=== PATIENT | male | born 1960 | race Hispanic/Latino ===

== ENCOUNTER 2020-11-25 22:02 | Inpatient (IN) | payer SELFPAY ==
[2020-11-25 22:29] LABS: Arterial Blood Carboxyhemoglob 8.7 % (0-1.5); Blood Gas Oxyhemoglobin 90.1 % (94-97); Blood O2 Saturation 99.7 % (92-98.5)
[2020-11-25] MEDS ORDERED: METHYLPREDNISOLONE 125 MG INJ ONE (22:41)
[2020-11-25 23:10] LABS: Absolute Lymphocytes (CBC) 1.4 K/uL (0.7-4.9); Basophils % 0.3 % (0-1.3); Hematocrit 53.6 % (39.6-49.0); Lymphocytes % 11.4 % (15.3-44.8); MPV 7.3 fL (7.6-11.3); RBC Red Blood Cell Count 5.91 M/uL (4.33-5.43)
[2020-11-25 23:13] LABS: Protime INR 1.03
[2020-11-25 23:27] LABS: ALT/SGPT 27 U/L (12-78); Albumin 4.2 g/dL (3.4-5.0); Alkaline Phosphatase 111 U/L (45-117); BUN Blood Urea Nitrogen 13 mg/dL (7-18); Bicarbonate 32 mmol/L (21-32); Bilirubin Direct 0.1 mg/dL (0-0.2); Bilirubin Total 0.4 mg/dL (0.2-1.0); Glucose Level 122 mg/dL (74-106); NT PRO-BNP 71 pg/mL (<125); Protein, Total 7.7 g/dL (6.4-8.2); Sodium Level 138 mmol/L (136-145); Troponin (Emerg Dept Use Only) < 0.02 ng/mL (0.0-0.045)
[2020-11-25 23:29] LABS: AST/SGOT 20 U/L (15-37); C-Reactive Protein < 2.90 mg/L (<3.00); Magnesium 2.3 mg/dL (1.8-2.4); Potassium 4.6 mmol/L (3.5-5.1)
--- NOTE | 2020-11-25 23:29 | P.HP ---
Certification for Inpatient Patient admitted to: Inpatient With expected LOS: >2 Midnights Patient will require the following post-hospital care: None Practitioner: I am a practitioner with admitting privileges, knowledge of patient current condition, hospital course, and medical plan of care. Services: Services provided to patient in accordance with Admission requirements found in Title 42 Section 412.3 of the Code of Federal Regulations Patient History Date of Service: 11/25/20 Reason for admission: COPD exacerbation History of Present Illness: 60-year-old male with history of COPD, hypertension presents emergency room for shortness of breath. Patient reports increasing shortness of breath over the course of last few days cannula EMS tripoding, was 88% on room air. Patient was evaluated in the emerge department labs were significant for white blood cell count 12 hemoglobin 18 hematocrit 53.6 ABG pH 7.27 PCO2 69.7 patient was placed on BiPAP given nebulizer treatments, Solu-Medrol and magnesium, patient still very tight with expiratory wheezing on exam, ED very wishes to admit for further evaluation and management of COPD with exacerbation. Allergies No Known Allergies Allergy (Verified 12/19/16 06:07) Home Medications: Albuterol Inhaler [Ventolin Inhaler*] 2 puff IH Q6H PRN #1 hfa.aer.ad 12/19/16 Theophylline Anhydrous [Theophylline] 400 mg PO DAILY #30 tab.er.24h 12/19/16 Tiotropium [place] [Spiriva] 1 spray IH DAILY #30 cap.w.dev 12/19/16 - Past Medical/Surgical History Diabetic: No -: Hypertension -: COPD -: None Psychosocial/ Personal History: Lives at home, alone - Family History Father -: Heart disease Mother -: Lung disease - Social History Smoking Status: Current every day smoker Alcohol use: Yes CD- Drugs: No Caffeine use: Yes Place of Residence: Home Review of Systems 10-point ROS is otherwise unremarkable Respiratory: Cough, Shortness of Breath, SOB with Excertion, Wheezing Physical Examination - Physical Exam General: Alert, In no apparent distress, Oriented x3 HEENT: Atraumatic, PERRLA, Mucous membr. moist/pink, EOMI, Sclerae nonicteric Neck: Supple, 2+ carotid pulse no bruit, No LAD, Without JVD or thyroid abnormality Respiratory: Expiratory wheezes, Other (Mild respiratory distress) Cardiovascular: Regular rate/rhythm, Normal S1 S2 Gastrointestinal: Normal bowel sounds, No tenderness Musculoskeletal: No tenderness Integumentary: No rashes Neurological: Normal speech, Normal strength at 5/5 x4 extr, Normal tone, Normal affect - Studies Laboratory Data (last 24 hrs) 11/25/20 22:47: PT 11.9, INR 1.03 11/25/20 22:47: WBC 12.00 H, Hgb 18.1 H, Hct 53.6 H, Plt Count 286 Assessment and Plan - Plan Assessment: Acute hypoxic/hypercapnic respiratory failure secondary to COPD with exacerbation Hypertension Plan: Acute hypoxic/hypercapnic respiratory failure secondary to COPD with ex acerbation: Continue with IV steroids, inhaled ICS, scheduled nebulizer treatments, BiPAP repeat ABG in the morning supplemental oxygen as needed incentive spirometry, consult pulmonology. Anticipate clinical bruit over the course next 24 to 48 hours. Hypertension: Patient denies taking any medications at home will monitor blood pressure and provide as necessary. DVT PPX: Lovenox Code status: Full Discharge Plan: Home Plan to discharge in: 48 Hours - Advance Directives Does patient have a Living Will: No Does patient have a Durable POA for Healthcare: No - Code Status/Comfort Care Code Status Assessed: Yes (Full code) Critical Care: No Time Spent Managing Pts Care (In Minutes): 55
[2020-11-25] MEDS ORDERED: ALBUTEROL 2.5 MG/3 ML NEB SOL ONE (23:31)
[2020-11-25] MEDS ORDERED: IPRATROPIUM BROM 0.5MG/2.5ML ONE (23:31)
--- NOTE | 2020-11-25 23:42 | ER ---
Nurse's Notes [facility] Name: Cipriano Nesbitt Age: 60 yrs Sex: Male : 1960 Arrival Date: 11/25/2020 Time: 22:04 Bed 26 Private MD: Diagnosis: Acute respiratory failure. COPD exacerbation Presentation: 11/25 22:05 Chief complaint: EMS states: they were toned out for report of pt with difficulty bb breathing on arrival his sats were 88% on room air and he was in a tripod position. Coronavirus screen: difficulty breathing, Client presents with at least one sign or symptom that may indicate coronavirus-19. Standard/surgical mask placed on the client. Ebola Screen: No symptoms or risks identified at this time. Initial Sepsis Screen: Does the patient meet any 2 criteria? RR > 20 per min. HR > 90 bpm. Yes Does the patient have a suspected source of infection? Yes: Productive cough/pneumonia. Risk Assessment: Do you want to hurt yourself or someone else? Patient reports no desire to harm self or others. Onset of symptoms was November 25, 2020. Care prior to arrival: Medication(s) given: solu-medrol 125 mg IV initiated. 20 GA, in the left antecubital area, Oxygen administered. via nasal cannula. 22:05 Method Of Arrival: EMS: [facility] bb 22:05 Acuity: MARÍA 2 bb Historical: - Allergies: 22:10 No Known Allergies; bb - PMHx: 22:10 Asthma; Hypertension; bb - Immunization history:: Adult Immunizations unknown, Client reports having NOT received the Covid vaccine. . - Social history:: Smoking status: Patient reports the use of cigarette tobacco products, smokes one pack cigarettes per day. - Code Status:: Full code. Screenin:24 Abuse screen: Denies threats or abuse. Nutritional screening: No deficits noted. cw2 Tuberculosis screening: No symptoms or risk factors identified. Fall Risk No fall in past 12 months (0 pts). Sepsis Screening: SIRS - Systemic Inflammatory Response Syndrome: 2 or more indicates positive screen: [heart rate greater than 90 beats per minute] [respiratory rate is greater than 20 breaths per minute]. Assessment: 22:24 Reassessment: Patient appears in no apparent distress at this time. No changes from cw2 previously documented assessment. General: Appears distressed, Behavior is anxious, Smells of. Pain: Denies pain. Neuro: No deficits noted. Cardiovascular: No deficits noted. Respiratory: Patient placed on BiPAP: Inspiratory Pressure: 14 Expiratory (EPAP) Pressure: 6 FiO2%: 100 Respiratory Rate: 12. GI: No deficits noted. : No deficits noted. Vital Signs: 22:05 BP 188 / 89; Pulse 103; Resp 28 S; Temp 97.7(O); Pulse Ox 97% on 4 lpm NC; Weight 63.5 bb kg (R); Height 5 ft. 5 in. (165.10 cm) (R); 22:35 BP 153 / 84; Pulse 103; Resp 24; Pulse Ox 100% on 15% BiPAP; dc2 22:05 Body Mass Index 23.30 (63.50 kg, 165.10 cm) bb Vitals: 22:24 Cardiac Rhythm Assessment Regular Sinus tach. cw2 [place] Score: 22:24 Eye Response: spontaneous(4). Verbal Response: oriented(5). Motor Response: obeys cw2 commands(6). Total: 15. ED Course: 22:04 Patient arrived in ED. mw2 22:07 Derick Gupta MD is Attending Physician. pkl 22:07 Alton Beckman RN is Primary Nurse. cw2 22:10 Triage completed. bb 22:10 Arm band placed on Patient placed in an exam room, on a stretcher, on oxygen, on bb telemetry monitor, on pulse oximetry. 22:20 Basic Metabolic Panel Sent. dc2 22:20 Procalcitonin Sent. dc2 22:20 Lactate Sent. dc2 22:20 ABG Sent. dc2 22:20 CRP Sent. dc2 22:20 D-Dimer Sent. dc2 22:21 Basic Metabolic Panel Sent. dc2 22:21 CBC with Diff Sent. dc2 22:21 LFT's Sent. dc2 22:21 Magnesium Sent. dc2 22:21 NT PRO-BNP Sent. dc2 22:21 PT-INR Sent. dc2 22:21 Troponin (emerg Dept Use Only) Sent. dc2 22:22 Inserted saline lock: 20 gauge in right forearm, using aseptic technique. dc2 22:22 Accessed Clean \T\ dry. Dressing intact. Good blood return. Flushes easily. double lumen dc2 20 G to left AC. 22:29 No provider procedures requiring assistance completed. O2 via BIPAP 14/6 RT 12 FI02 cw2 100%. 22:32 Patient has correct armband on for positive identification. Bed in low position. Side cw2 rails up X2. 22:33 O2 via FIO2 DECREASED TO 40%. cw2 22:38 X-ray(s) taken. dc2 22:43 XRAY Chest (1 view) In Process Unspecified. EDMS 23:24 CPAP ([employer] Only) Sent. cw2 23:39 Abdirizak Narayanan DO is Hospitalizing Provider. pkl 11/26 01:36 Patient moved back from CT. df1 Administered Medications: 11/25 22:20 Drug: SOLU-Medrol (methylPrednisoLONE) 125 mg Route: IVP; Site: right antecubital; dc2 23:24 Drug: Albuterol - atroVENT (ipratropium) (3:1) (2.5 mg - 0.5 mg) 3 ml Route: Nebulizer; cw2 23:48 Drug: NS 0.9% 500 ml Route: IV; Rate: bolus; Site: left antecubital; cw2 23:48 Drug: NS 0.9% 1000 ml Route: IV; Rate: 100 ml/hr; Site: left antecubital; cw2 23:48 Drug: Magnesium Sulfate 2 grams Route: IVPB; Infused Over: 1 hrs; Site: left cw2 antecubital; Outcome: 23:41 Decision to Hospitalize by Provider. pkl 11/26 17:22 Patient left the ED. tc5 Signatures: Dispatcher [employer] EDMS Derick Gupta MD MD pkl Ruby Farias, MARY KATE RN bb Montrell Shaw 2 Amber Beebe df1 Piper Aguirre RN RN dc2 Alton Beckman RN RN cw2 Ml Caldera RN RN tc5 Corrections: (The following items were deleted from the chart) 11/25 22:40 22:21 CORONAVIRUS+ drawn and sent. dc2 EDMS 11/26 06:43 00:30 BP 106 / 45; Pulse 69bpm; Resp 26bpm; Pulse Ox 96%; Pain 0/10; dc2 dc2 06:43 01:15 BP 108 / 52; Pulse 72bpm; Resp 28bpm; Pulse Ox 95% 02 15% BiPAP; Pain 0/10; dc2 dc2 06:43 05:00 BP 153 / 89; Pulse 97bpm; Resp 21bpm; Pulse Ox 94% 02 15% BiPAP; Pain 0/10; dc2 dc2
--- NOTE | 2020-11-25 23:42 | EDPHYS ---
Physician Documentation [facility] Name: Cipriano Nesbitt Age: 60 yrs Sex: Male : 1960 Arrival Date: 11/25/2020 Time: 22:04 Bed 26 Private MD: ED Physician Derick Gupta HPI: 11/25 23:36 This 60 yrs old Male presents to ER via EMS with unknown complaint. pkl 23:36 The patient has shortness of breath at rest. Onset: The symptoms/episode began/occurred pkl today. The patient has experienced similar episodes in the past, a few times. Historical: - Allergies: 22:10 No Known Allergies; bb - PMHx: 22:10 Asthma; Hypertension; bb - Immunization history:: Adult Immunizations unknown, Client reports having NOT received the Covid vaccine. . - Social history:: Smoking status: Patient reports the use of cigarette tobacco products, smokes one pack cigarettes per day. - Code Status:: Full code. ROS: 23:36 Eyes: Negative for injury, pain, redness, and discharge, ENT: Negative for injury, pkl pain, and discharge, Neck: Negative for injury, pain, and swelling, Cardiovascular: Negative for chest pain, palpitations, and edema. 23:36 Respiratory: Positive for shortness of breath, at rest. wheezing. 23:36 Abdomen/GI: Negative for abdominal pain, nausea, vomiting, and diarrhea. 23:36 Back: Negative for acute changes. 23:36 : Negative for urinary symptoms. 23:36 MS/extremity: Negative for acute changes. 23:36 Skin: Negative for rash. 23:36 Neuro: Negative for altered mental status, loss of consciousness. Exam: 23:36 Head/Face: Normocephalic, atraumatic. Eyes: Pupils equal round and reactive to light, pkl extra-ocular motions intact. Lids and lashes normal. Conjunctiva and sclera are non-icteric and not injected. Cornea within normal limits. Periorbital areas with no swelling, redness, or edema. ENT: Nares patent. No nasal discharge, no septal abnormalities noted. Tympanic membranes are normal and external auditory canals are clear. Oropharynx with no redness, swelling, or masses, exudates, or evidence of obstruction, uvula midline. Mucous membranes moist. Neck: Trachea midline, no thyromegaly or masses palpated, and no cervical lymphadenopathy. Supple, full range of motion without nuchal rigidity, or vertebral point tenderness. No Meningismus. Chest/axilla: Normal chest wall appearance and motion. Nontender with no deformity. No lesions are appreciated. Cardiovascular: Regular rate and rhythm with a normal S1 and S2. No gallops, murmurs, or rubs. Normal PMI, no JVD. No pulse deficits. 23:36 Respiratory: moderate respiratory distress is noted, Respirations: labored breathing, Breath sounds: bronchial sounds, that are moderate, rhonchi, that are moderate, are scattered. 23:36 Abdomen/GI: Bowel sounds: normal, Palpation: abdomen is soft and non-tender, in all quadrants. 23:36 Back: Exam negative for acute changes. 23:36 : Exam negative for acute changes. 23:36 Musculoskeletal/extremity: Exam is negative for acute changes. 23:36 Skin: Exam negative for rash. 23:36 Neuro: Orientation: is normal, Mentation: is normal, Cranial nerves: grossly normal, Motor: Vital Signs: 22:05 BP 188 / 89; Pulse 103; Resp 28 S; Temp 97.7(O); Pulse Ox 97% on 4 lpm NC; Weight 63.5 bb kg (R); Height 5 ft. 5 in. (165.10 cm) (R); 22:35 BP 153 / 84; Pulse 103; Resp 24; Pulse Ox 100% on 15% BiPAP; dc2 22:05 Body Mass Index 23.30 (63.50 kg, 165.10 cm) bb [place] Com[place] Score: 22:24 Eye Response: spontaneous(4). Verbal Response: oriented(5). Motor Response: obeys cw2 commands(6). Total: 15. MDM: 22:07 Patient medically screened. pkl 23:36 Data reviewed: vital signs, nurses notes, lab test result(s), EKG, radiologic studies, pkl plain films. ED course: Talked to Antonino Fontanez ( [employer] ) Admit to Dr. Narayanan. 11/25 22:13 Order name: Basic Metabolic Panel pkl 11/25 22:13 Order name: CBC with Diff; Complete Time: 23:18 pkl 11/25 22:13 Order name: LFT's; Complete Time: 23:33 pkl 11/25 22:13 Order name: Magnesium; Complete Time: 23:33 pkl 11/25 22:13 Order name: NT PRO-BNP; Complete Time: 23:33 pkl 11/25 22:13 Order name: PT-INR; Complete Time: 23:18 pkl 11/25 22:13 Order name: Troponin (emerg Dept Use Only); Complete Time: 23:33 pkl 11/25 22:13 Order name: D-Dimer; Complete Time: 23:18 pkl 11/25 22:13 Order name: CRP; Complete Time: 23:33 pkl 11/25 22:13 Order name: ABG; Complete Time: 22:41 pkl 11/25 22:13 Order name: Lactate; Complete Time: 23:33 pkl 11/25 22:13 Order name: Procalcitonin pk 11/25 22:14 Order name: Basic Metabolic Panel; Complete Time: 23:33 EDMS 11/25 22:13 Order name: XRAY Chest (1 view) pk 11/25 22:47 Order name: CPAP ([employer] Only) EDCT 11/26 00:04 Order name: SARS-COV-2 RT PCR EDMS 11/26 00:06 Order name: Urine Dipstick-Ancillary EDMS 11/26 04:11 Order name: CBC with Automated Diff EDMS 11/26 06:01 Order name: ABG Arterial Blood Gas EDMS 11/26 07:24 Order name: Comprehensive Metabolic Panel EDMS 11/26 07:24 Order name: Lipid Profile EDMS 11/26 07:24 Order name: T4 Free EDMS 11/26 07:24 Order name: Magnesium EDMS 11/26 07:24 Order name: Thyroid Stimulating Hormone EDCT 11/26 08:07 Order name: Manual Differential EDMS 11/25 22:13 Order name: EKG; Complete Time: 22:15 pkl 11/25 22:13 Order name: Cardiac monitoring; Complete Time: 22:21 pk 11/25 22:13 Order name: EKG - Nurse/Tech; Complete Time: 22:21 pk 11/25 22:13 Order name: IV Saline Lock; Complete Time: 22:21 pk 11/25 22:13 Order name: Labs collected and sent; Complete Time: 22:21 pk 11/25 22:13 Order name: O2 Per Protocol; Complete Time: 22:21 pkl 11/25 22:13 Order name: O2 Sat Monitoring; Complete Time: 22:21 pkl Administered Medications: 22:20 Drug: SOLU-Medrol (methylPrednisoLONE) 125 mg Route: IVP; Site: right antecubital; dc2 23:24 Drug: Albuterol - atroVENT (ipratropium) (3:1) (2.5 mg - 0.5 mg) 3 ml Route: Nebulizer; cw2 23:48 Drug: NS 0.9% 500 ml Route: IV; Rate: bolus; Site: left antecubital; cw2 23:48 Drug: NS 0.9% 1000 ml Route: IV; Rate: 100 ml/hr; Site: left antecubital; cw2 23:48 Drug: Magnesium Sulfate 2 grams Route: IVPB; Infused Over: 1 hrs; Site: left cw2 antecubital; Disposition Summary: 11/25/20 23:41 Hospitalization Ordered Hospitalization Status: Inpatient Admission pkl Provider: Abdirizak Narayanan pkfarhad Condition: Stable pkl Problem: new pkl Symptoms: have improved pkl Bed/Room Type: Standard pkl Location: Telemetry/MedSurg (Inpatient)(11/26/20 15:20) wi Room Assignment: [facility](11/26/20 15:20) wi Diagnosis - Acute respiratory failure. COPD exacerbation pkl Forms: - Medication Reconciliation Form pkl - SBAR form pkl Signatures: Dispatcher [employer] EDCT Derick Gupta MD MD pkl Ruby Farias RN Antonino Marcum, GRAZING EXAMINER-C GRAZING EXAMINER-Cla1 Tess Morrison RN RN lesly1 Kortney Barreto wi Piper Aguirre RN RN dc2 Alton Beckman RN RN cw2 Corrections: (The following items were deleted from the chart) 22:40 22:15 CORONAVIRUS+[email or web address] ordered. [facility] EDCT 11/26 00:11 11/25 23:41 Telemetry/MedSurg (Inpatient) pkl tl1 11/26 00:11 11/25 23:41 pkl tl1 11/26 15:20 00:11 [facility] ER HOLD tl1 wi 15:20 00:11 ERHOLD- 1 mt
[2020-11-25] MEDS ORDERED: NA CHLORIDE 0.9% 500 ML ONE (23:51)
[2020-11-25] MEDS ORDERED: Magnesium Sulfate 2gm IVPB 2 G/50 ML BAG IV ONE (23:51)
[2020-11-25] MEDS ORDERED: NA CHLORIDE 0.9% 1,000 ML ONE (23:51)
[2020-11-25] MEDS ORDERED: ONDANSETRON 4 MG/2 ML VIAL IV PRN (23:53)
[2020-11-25] MEDS: NA CHLORIDE 0.9% 1,000 ML IV SCH (23:53)
[2020-11-26 00:06] LABS: Urine Blood Negative (Negative); Urine Glucose Trace (Negative); Urine Protein Negative (Negative); Urine Specific Gravity >=1.030 (1.005-1.030); Urine pH 5.5 (5.0-7.0)
[2020-11-26 00:27] VITALS: BMI 21.7
[2020-11-26] MEDS ORDERED: IPRATROPIUM BROM 0.5MG/2.5ML NEB SCH (02:00)
[2020-11-26] MEDS ORDERED: ALBUTEROL 2.5 MG/3 ML NEB SOL NEB SCH (02:00)
[2020-11-26] MEDS ORDERED: ALBUTEROL 2.5 MG/3 ML NEB SOL ONE (03:09)
[2020-11-26] MEDS ORDERED: IPRATROPIUM BROM 0.5MG/2.5ML ONE ×2 (03:09→15:15)
[2020-11-26 03:56] LABS: Absolute Lymphocytes (CBC) 0.4 K/uL (0.7-4.9); Basophils % 0.2 % (0-1.3); Hematocrit 48.8 % (39.6-49.0); Lymphocytes % 4.9 % (15.3-44.8); MPV 7.5 fL (7.6-11.3); RBC Red Blood Cell Count 5.32 M/uL (4.33-5.43)
[2020-11-26 06:00] LABS: Arterial Blood Carboxyhemoglob 4.9 % (0-1.5); Blood Gas Oxyhemoglobin 91.8 % (94-97); Blood O2 Saturation 97.6 % (92-98.5)
[2020-11-26] MEDS ORDERED: ALBUTEROL 2.5 MG/3 ML NEB SOL NEB PRN (06:26)
[2020-11-26] MEDS ORDERED: IPRATROPIUM BROM 0.5MG/2.5ML NEB PRN (06:26)
--- NOTE | 2020-11-26 06:28 | P.PN ---
Subjective Date of Service: 11/26/20 Chief Complaint: COPD exacerbation Subjective: Improving (Patient on BiPAP this morning but now down to nasal cannula) Physical Examination - Vital Signs Temperature: 98.3 F Blood Pressure: 109/65 Pulse: 72 Respirations: 15 Pulse Ox (%): 98 - Studies Laboratory Data (last 24 hrs) 11/25/20 22:47: PT 11.9, INR 1.03 11/25/20 22:47: WBC 12.00 H, Hgb 18.1 H, Hct 53.6 H, Plt Count 286 11/25/20 22:47: Sodium 138, Potassium 4.6, BUN 13, Creatinine 0.85, Glucose 122 H, Magnesium 2.3, Total Bilirubin 0.4, AST 20, ALT 27, Alkaline Phosphatase 111 Assessment & Plan Discharge Plan: Home Plan to discharge in: 48 Hours Physician Review Additional Text: COVID: negative CXR: COMPARISON: Chest Single View dated 12/19/2016 FINDINGS: Lines: None. Lungs: Large lung volumes and likely bullous emphysema Pleural: Blunting of the costophrenic angles may be secondary to hyperinflation. Cardiac: The heart size is within normal limits. Bones: No acute fractures. IMPRESSION: Bullous emphysema without superimposed acute process. Physical exam: General: Alert, In no apparent distress, Oriented x3 HEENT: Neck supple Respiratory: Clear. Unlabored. Currently on BiPAP. Cardiovascular: Regular rate/rhythm, Normal S1 S2 Gastrointestinal: Normal bowel sounds, No tenderness Musculoskeletal: No tenderness Integumentary: No rashes Neurological: Normal speech, Normal strength at 5/5 x4 extr, Normal tone, Normal affect Impression: Acute hypoxic/hypercapnic respiratory failure secondary to COPD with exacerbation Elevated blood pressure without hypertension Plan: Acute hypoxic/hypercapnic respiratory failure secondary to COPD with exacerbation: Patient on BiPAP this morning. Continue to wean off. Currently on 2 L per nasal cannula. Continue steroid, COPD treatment. Pulmonology consulted for further recommendation. Anticipate improvement over the next 24 to 48 hours. Patient will need follow-up with PCP and pulmonology. Patient may require home oxygen at discharge. Will reassess tomorrow. Elevated blood pressure without hypertension: Blood pressure stable at this time. No need for medication. Will monitor closely. DVT PPX: Lovenox Code status: Full Discharge Plan: Home Time Spent Managing Pts Care (In Minutes): 55
[2020-11-26] MEDS ORDERED: NA CHLORIDE 0.9% 1,000 ML ONE (06:44)
--- NOTE | 2020-11-26 07:12 | RAD REPORT ---
EXAM DESCRIPTION: RAD - Chest Single View - 11/25/2020 10:43 pm CLINICAL HISTORY: DYSPNEA COMPARISON: Chest Single View dated 12/19/2016 FINDINGS: Lines: None. Lungs: Large lung volumes and likely bullous emphysema Pleural: Blunting of the costophrenic angles may be secondary to hyperinflation. Cardiac: The heart size is within normal limits. Bones: No acute fractures. Other: IMPRESSION: Bullous emphysema without superimposed acute process.
[2020-11-26 07:19] LABS: ALT/SGPT 33 U/L (12-78); AST/SGOT 23 U/L (15-37); Albumin 3.3 g/dL (3.4-5.0); Alkaline Phosphatase 99 U/L (45-117); BUN Blood Urea Nitrogen 11 mg/dL (7-18); Bicarbonate 29 mmol/L (21-32); Bilirubin Total 0.3 mg/dL (0.2-1.0); Glucose Level 149 mg/dL (74-106); HDL Cholesterol 45 mg/dL (40-60); LDL Cholesterol, Calculated 117 (<130); Magnesium 2.4 mg/dL (1.8-2.4); Potassium 4.5 mmol/L (3.5-5.1); Protein, Total 6.5 g/dL (6.4-8.2); Sodium Level 138 mmol/L (136-145)
[2020-11-26] MEDS: ARFORMOTEROL TARTRATE 15 MCG/2 ML VIAL.NEB NEB SCH ×2 (07:40→19:45)
[2020-11-26] MEDS ORDERED: METHYLPREDNISOLONE 40 MG INJ ONE (07:51)
[2020-11-26] MEDS ORDERED: ENOXAPARIN 40 MG/0.4 ML SQ ONE (07:51)
[2020-11-26] MEDS ORDERED: ARFORMOTEROL TARTRATE 15 MCG/2 ML VIAL.NEB ONE (08:02)
[2020-11-26 08:06] LABS: Blood Morphology Comment NOT SEEN (NOT SEEN); Platelet Estimate ADEQ
[2020-11-26] MEDS: ENOXAPARIN 40 MG/0.4 ML SQ SCH (08:26)
[2020-11-26] MEDS ORDERED: DULERA 200/5 (MOMETASONE/FORMOTEROL) INHALER IH SCH (09:00)
[2020-11-26] MEDS ORDERED: METHYLPREDNISOLONE 40 MG INJ IV SCH (09:00)
[2020-11-26] MEDS: NA CHLORIDE 0.9% 1,000 ML IV SCH (09:53)
--- NOTE | 2020-11-26 13:40 | P.CNS ---
Date of Consult: 11/26/20 Reason for Consult: COPD exacerbation Chief Complaint: COPD exacerbation History of Present Illness: Age 60 hx of COPD AW worseing SOB, hyoxic OA and hypercapneic/ Doing better Allergies No Known Allergies Allergy (Verified 12/19/16 06:07) Home Medications: Albuterol Inhaler [Ventolin Inhaler*] 2 puff IH Q6H PRN #1 hfa.aer.ad 12/19/16 Theophylline Anhydrous [Theophylline] 400 mg PO DAILY #30 tab.er.24h 12/19/16 Tiotropium [place] [Spiriva] 1 spray IH DAILY #30 cap.w.dev 12/19/16 - Past Medical/Surgical History Diabetic: No -: Hypertension -: COPD -: None Psychosocial/ Personal History: Lives at home, alone - Family History Father Medical History: Heart disease Mother Medical History: Lung disease - Social History Smoking Status: Current every day smoker Alcohol use: No CD- Drugs: No Caffeine use: No Place of Residence: Home Review of Systems 10-point ROS is otherwise unremarkable General: Weakness Respiratory: Shortness of Breath Physical Examination Temp Pulse Resp BP Pulse Ox 98.2 F 94 H 16 112/68 97 11/26/20 08:00 11/26/20 12:00 11/26/20 12:00 11/26/20 12:00 11/26/20 08:00 General: Alert, In no apparent distress, Oriented x3 Neck: Supple Respiratory: Diminished Cardiovascular: No edema, Regular rate/rhythm Gastrointestinal: Normal bowel sounds, Soft and benign Musculoskeletal: No clubbing Laboratory Data (last 24 hrs) 11/25/20 22:47: PT 11.9, INR 1.03 11/25/20 22:47: WBC 12.00 H, Hgb 18.1 H, Hct 53.6 H, Plt Count 286 11/25/20 22:47: Sodium 138, Potassium 4.6, BUN 13, Creatinine 0.85, Glucose 122 H, Magnesium 2.3, Total Bilirubin 0.4, AST 20, ALT 27, Alkaline Phosphatase 111 - Problems (1) COPD exacerbation Current Visit: No Status: Resolved Plan: age 60 Aw COPD exacerbation, hypoxic hypercarbic/ XRY COPD changes labs unremarkable. Change to NC O2/ Need LABA
[2020-11-26] MEDS: IPRATROPIUM BROM 0.5MG/2.5ML NEB SCH ×2 (14:49→19:45)
[2020-11-26] MEDS: predniSONE 20 MG TAB PO SCH (19:47)
[2020-11-27] MEDS: IPRATROPIUM BROM 0.5MG/2.5ML NEB SCH ×2 (01:20→08:20)
[2020-11-27 05:31] LABS: Absolute Lymphocytes (CBC) 0.8 K/uL (0.7-4.9); Basophils % 0.1 % (0-1.3); Hematocrit 43.9 % (39.6-49.0); Lymphocytes % 5.1 % (15.3-44.8); MPV 7.4 fL (7.6-11.3); RBC Red Blood Cell Count 4.76 M/uL (4.33-5.43)
[2020-11-27 05:45] LABS: ALT/SGPT 29 U/L (12-78); AST/SGOT 11 U/L (15-37); Albumin 3.1 g/dL (3.4-5.0); Alkaline Phosphatase 89 U/L (45-117); BUN Blood Urea Nitrogen 15 mg/dL (7-18); Bicarbonate 33 mmol/L (21-32); Bilirubin Total 0.2 mg/dL (0.2-1.0); Glucose Level 118 mg/dL (74-106); Magnesium 2.3 mg/dL (1.8-2.4); Potassium 4.5 mmol/L (3.5-5.1); Protein, Total 5.9 g/dL (6.4-8.2); Sodium Level 141 mmol/L (136-145)
--- NOTE | 2020-11-27 06:10 | P.DS ---
Admission Date: 11/25/20 Discharge Date: 11/27/20 Primary Care Provider: none Disposition: ROUTINE DISCHARGE Discharge Condition: GOOD Reason for Admission: COPD exacerbation Consultations: Pulmonary-Dr. Albarran Procedures: COVID: negative CXR: COMPARISON: Chest Single View dated 12/19/2016 FINDINGS: Lines: None. Lungs: Large lung volumes and likely bullous emphysema Pleural: Blunting of the costophrenic angles may be secondary to hyperinflation. Cardiac: The heart size is within normal limits. Bones: No acute fractures. IMPRESSION: Bullous emphysema without superimposed acute process. Medical Problem List: Acute hypoxic/hypercapnic respiratory failure secondary to COPD with exacerbation Elevated blood pressure without hypertension Brief History of Present Illness: 60-year-old male with history of COPD presented to the emergency room with shortness of breath. Patient found to have acute respiratory failure. Patient required BiPAP in the emergency room. Patient admitted for further treatment. Hospital Course: Patient presented with acute hypoxic/hypercapnic respiratory failure secondary to COPD exacerbation. Patient required BiPAP during the course of his stay. Patient seen and evaluated by pulmonology. His condition improved with IV steroids and COPD treatment. At discharge patient without significant shortness of breath. Patient has been weaned off oxygen. At discharge the patient will continue with prednisone 20 mg 1 pill twice daily for 7 days then 1 pill once daily for 7 days. The patient will continue with air duo 1 puff twice daily and ProAir 2 puffs 3 times a day as needed for shortness of breath for his COPD. Education on COPD will be provided. Recommend to follow-up with pulmonology within 1 to 2 weeks to follow-up his hospitalization and continue his care. Recommend to establish care with a PCP in the area. Patient with elevated blood pressure without hypertension. Blood pressure stable at discharge. No need for medication at this time. This can be followed as an outpatient. Vital Signs/Physical Exam: Temp Pulse Resp BP Pulse Ox 97.8 F 90 18 121/56 L 92 11/27/20 00:00 11/27/20 00:00 11/27/20 00:00 11/27/20 00:00 11/27/20 00:00 General: Alert, In no apparent distress, Oriented x3, Cooperative HEENT: Atraumatic Neck: Supple Respiratory: Clear to auscultation bilaterally, Normal air movement Cardiovascular: Normal pulses, Regular rate/rhythm Gastrointestinal: Normal bowel sounds, No tenderness, No masses, No rebound, No guarding Musculoskeletal: No erythema, No tenderness, No warmth Integumentary: No tenderness/swelling, No erythema Neurological: Normal speech, Normal strength at 5/5 x4 extr, Normal tone, Normal affect Laboratory Data at Discharge: WBC 15.70 K/uL (4.3-10.9) H D 11/27/20 04:33 Hgb 14.6 g/dL (13.6-17.9) 11/27/20 04:33 Hct 43.9 % (39.6-49.0) 11/27/20 04:33 Plt Count 242 K/uL (152-406) 11/27/20 04:33 PT 11.9 SECONDS (9.5-12.5) 11/25/20 22:47 INR 1.03 11/25/20 22:47 Sodium 141 mmol/L (136-145) 11/27/20 04:33 Potassium 4.5 mmol/L (3.5-5.1) 11/27/20 04:33 BUN 15 mg/dL (7-18) 11/27/20 04:33 Creatinine 0.81 mg/dL (0.55-1.3) 11/27/20 04:33 Glucose 118 mg/dL (74-106) H 11/27/20 04:33 Magnesium 2.3 mg/dL (1.8-2.4) 11/27/20 04:33 Total Bilirubin 0.2 mg/dL (0.2-1.0) 11/27/20 04:33 AST 11 U/L (15-37) L 11/27/20 04:33 ALT 29 U/L (12-78) 11/27/20 04:33 Alkaline Phosphatase 89 U/L (45-117) 11/27/20 04:33 Triglycerides 75 mg/dL (<150) 11/26/20 05:43 Cholesterol 177 mg/dL (<200) 11/26/20 05:43 HDL Cholesterol 45 mg/dL (40-60) 11/26/20 05:43 Cholesterol/HDL Ratio 3.93 11/26/20 05:43 Home Medications: Albuterol Sulfate [Proair Hfa] 2 puff IH TID PRN #1 hfa.[email or web address] 11/27/20 Fluticasone Propion/Salmeterol [Airduo Digihaler 113-14 Mcg] 1 each IH BID #1 aer.pw.bas 11/27/20 predniSONE [Prednisone*] 20 mg PO SEECOM #21 tab 11/27/20 New Medications: Fluticasone Propion/Salmeterol [Airduo Digihaler 113-14 Mcg] 1 each IH BID #1 aer.pw.bas predniSONE [Prednisone*] 20 mg PO SEECOM #21 tab Albuterol Sulfate [Proair Hfa] 2 puff IH TID PRN #1 hfa.[email or web address] PRN Reason: Shortness Of Breath Physician Discharge Instructions: Patient presented with acute hypoxic/hypercapnic respiratory failure secondary to COPD exacerbation. Patient required BiPAP during the course of his stay. Patient seen and evaluated by pulmonology. His condition improved with IV steroids and COPD treatment. At discharge patient without significant shortness of breath. Patient has been weaned off oxygen. At discharge the patient will continue with prednisone 20 mg 1 pill twice daily for 7 days then 1 pill once daily for 7 days. The patient will continue with air duo 1 puff twice daily and ProAir 2 puffs 3 times a day as needed for shortness of breath for his COPD. Education on COPD will be provided. Recommend to follow-up with pulmonology within 1 to 2 weeks to follow-up his hospitalization and continue his care. Recommend to establish care with a PCP in the area. Patient with elevated blood pressure without hypertension. Blood pressure stable at discharge. No need for medication at this time. This can be followed as an outpatient. Diet: AHA Activity: Ad juan Followup: Unknown,U [Primary Care Provider] - Time spent managing pt's care (in minutes): 55
[2020-11-27] MEDS: ENOXAPARIN 40 MG/0.4 ML SQ SCH (08:17)
[2020-11-27] MEDS: predniSONE 20 MG TAB PO SCH (08:18)
[2020-11-27] MEDS: ARFORMOTEROL TARTRATE 15 MCG/2 ML VIAL.NEB NEB SCH (08:20)
[2020-11-27 08:35] VITALS: BP 106/55; TEMP 98.1
[2020-11-27 08:55] VITALS: O2SAT 94
--- NOTE | 2020-11-27 10:45 | EKG ---
Test Date: 2020-11-25 Test Time: 22:22:25 Clinical Appeals Auditor: DOUGLAS MEASUREMENT RESULTS: Intervals: Rate: 102 TX: 126 QRSD: 82 QT: 334 QTc: 435 [place]: P: 85 TX: 126 QRS: 81 T: 77 INTERPRETIVE STATEMENTS: Sinus tachycardia Biatrial enlargement Abnormal ECG Compared to ECG 12/19/2016 02:01:33 Atrial abnormality now present Sinus rhythm no longer present Electronically Signed On 11-27-20 10:40:54 CDT by Dc Hall
== END 2020-11-27 14:05 | disposition home or self-care (01) | DRG 190 ==
LOC: ER 22:02 → ERHOLD 23:41 → 2ND 11-26 16:39
PROVIDERS: ADMIT Family Medicine; ATTEND Family Medicine
PROC: 5A09357 Assistance with Respiratory Ventilation, Less than 24 Consecutive Hours, Continuous Positive Airway Pressure (ICD-10-PCS; principal; 2020-11-25)
DX: J44.1 Chronic obstructive pulmonary disease with (acute) exacerbation (principal); J96.02 Acute respiratory failure with hypercapnia; J96.01 Acute respiratory failure with hypoxia; R03.0 Elevated blood-pressure reading, without diagnosis of hypertension; Z20.822 Contact with and (suspected) exposure to COVID-19
CPT/HCPCS: 36415; 71045; 80048; 80053; 80061; 80076; 81003; 82805; 83605; 83735; 83880; 84145; 84439; 84443; 84484; 85025; 85379; 85610; 86140; 93005; 94010; 94640; 94660; 99285; J1650; J2920; J2930; J3475; J7030; J7040; J7512; J7605; J7606; U0003

== ENCOUNTER 2021-08-02 08:23 | Inpatient (IN) | payer OTHER, SELFPAY ==
[2021-08-02 08:46] LABS: Arterial Blood Carboxyhemoglob 6.8 % (0-1.5); Blood Gas Oxyhemoglobin 90.3 % (94-97); Blood O2 Saturation 97.9 % (92-98.5)
[2021-08-02 08:49] LABS: Absolute Lymphocytes (CBC) 1.5 K/uL (0.7-4.9); Hematocrit 55.4 % (39.6-49.0); Lymphocytes % 12.3 % (15.3-44.8); MCV 93.9 fL (80-100); MPV 7.4 fL (7.6-11.3)
[2021-08-02] MEDS ORDERED: METHYLPREDNISOLONE 125 MG INJ ONE ×2 (08:50→17:04)
[2021-08-02] MEDS ORDERED: LEVALBUTEROL 1.25 MG/3 ML NEB ONE (08:51)
[2021-08-02] MEDS ORDERED: MAGNESIUM SULFATE 1 gm IVPB 1 GM/100 ML BAG IV ONE (08:51)
[2021-08-02] MEDS ORDERED: NA CHLORIDE 0.9% 1,000 ML ONE (08:51)
--- NOTE | 2021-08-02 08:54 | RAD REPORT ---
EXAM DESCRIPTION: RAD - Chest Single View - 08/02/2021 8:45 am CLINICAL HISTORY: DYSPNEA Chest pain. COMPARISON: Chest Single View dated 11/25/2020; Chest Single View dated 12/19/2016 FINDINGS: Portable technique limits examination quality. The lungs are emphysematous but grossly clear. The heart is normal in size. No displaced fractures. IMPRESSION: No acute intrathoracic process suspected. Prominent COPD.
[2021-08-02 09:02] LABS: Protime INR 1.13
[2021-08-02 09:09] LABS: Bilirubin Direct 0.3 mg/dL (0-0.2); Bilirubin Total 0.8 mg/dL (0.2-1.0); CKMB Creatine Kinase MB 4.3 ng/mL (1.0-3.6); Potassium 4.3 mmol/L (3.5-5.1); Protein, Total 7.5 g/dL (6.4-8.2)
--- NOTE | 2021-08-02 09:43 | ER ---
Nurse's Notes [facility] Name: Cipriano Nesbitt Age: 61 yrs Sex: Male : 1960 Arrival Date: 08/02/2021 Time: 08:26 Bed 18 Private MD: Diagnosis: COPD/ Chronic obstructive pulmonary disease with (acute) exacerbation;Acute respiratory failure with hypercapnia;Altered mental status, unspecified;Hypoxemia Presentation: 08/02 08:30 Chief complaint: EMS states: EMS called for shortness of breath. When they arrived he iw has in the tripod position with O2 sat of 74% and place on oxygen for ems transport. 09:05 Coronavirus screen: Client denies travel out of the [place] in the last 14 days. Ebola iw Screen: Patient denies travel to an Ebola-affected area in the 21 days before illness onset. Initial Sepsis Screen: Does the patient meet any 2 criteria? No. Patient's initial sepsis screen is negative. Does the patient have a suspected source of infection? No. Patient's initial sepsis screen is negative. Risk Assessment: Do you want to hurt yourself or someone else? Patient reports no desire to harm self or others. Onset of symptoms is unknown. 09:05 Method Of Arrival: EMS: [facility] iw 09:05 Acuity: MARÍA 2 iw Triage Assessment: 09:07 General: Appears distressed, slender, Behavior is cooperative. Pain: Denies pain. iw Neuro: Level of Consciousness is awake, alert, obeys commands, drowsy. Cardiovascular: Patient's skin is warm and dry. Pulses are palpable in right radial artery and left radial artery Rhythm is regular. Respiratory: Airway is patent Respiratory effort is labored, Breath sounds are coarse Breath sounds with wheezes. GI: No signs and/or symptoms were reported involving the gastrointestinal system. : No signs and/or symptoms were reported regarding the genitourinary system. Derm: Skin is intact. Historical: - Allergies: : No Known Allergies; iw - Home Meds: 09:07 Prednisone Oral [Active]; Naproxen Oral [Active]; iw - PMHx: 09:07 Asthma; Hypertension; Chronic obstructive lung disease; iw - Immunization history:: Adult Immunizations unknown. - Social history:: Smoking status: Patient reports the use of cigarette tobacco products, smokes one pack cigarettes per day. - Family history:: not pertinent. - Hospitalizations: : No recent hospitalization is reported. Screenin:10 Abuse screen: Denies threats or abuse. Denies injuries from another. Nutritional iw screening: No deficits noted. Tuberculosis screening: No symptoms or risk factors identified. Fall Risk None identified. Assessment: 09:09 Reassessment: Patient appears in no apparent distress at this time. No changes from iw previously documented assessment. Patient and/or family updated on plan of care and expected duration. Pain level reassessed. Patient is alert, oriented x 3, equal unlabored respirations, skin warm/dry/pink. see triage assessment. 09:30 Reassessment: resting in bed with bipap. once bipap placed respiratory status improved ww and patient fell asleep. Patient states symptoms have improved. 10:00 Reassessment: Patient appears in no apparent distress at this time. No changes from ww previously documented assessment. Patient and/or family updated on plan of care and expected duration. Pain level reassessed. 10:30 Reassessment: patient becoming restless with bipap mask and trying to remove mask. Dr. pako Lucero informed patient of the importance of wearing mask. 10:45 Reassessment: resting comfortably with bipap. Hospitalist at bedside. 11:32 Reassessment: Patient appears in no apparent distress at this time. No changes from previously documented assessment. resting in bed with Bipap, no apparent distress noted. Warm blanket provided. 12:17 Reassessment: Patient appears in no apparent distress at this time. Patient is alert, ld1 oriented x 3, equal unlabored respirations, skin warm/dry/pink. 16:00 Reassessment: Pt aggravated - trying to climb out of bed, taking BIPAP mask off of ld1 face, yelling. Notified admitting physician. SEE [facility] FOR ORDERS. 19:00 Reassessment: Patient and/or family updated on plan of care and expected duration. Pain ll3 level reassessed. Patient is alert, oriented x 3, equal unlabored respirations, skin warm/dry/pink. Pt is in bed sleeping, chest rising and falling, currently on 4 L NC, RR are even and unlabored, no S/S of distress. 20:30 Reassessment: No changes from previously documented assessment. Patient and/or family ll3 updated on plan of care and expected duration. Pain level reassessed. Patient is alert, oriented x 3, equal unlabored respirations, skin warm/dry/pink. 22:00 Reassessment: No changes from previously documented assessment. Patient and/or family ll3 updated on plan of care and expected duration. Pain level reassessed. Patient is alert, oriented x 3, equal unlabored respirations, skin warm/dry/pink. Vital Signs: 08:30 BP 93 / 61; Pulse 98; Resp 14; Temp 98.3(O); Pulse Ox 95% on 3 lpm NC; Weight 58.97 kg; iw Height 5 ft. 6 in. (167.64 cm); Pain 0/10; 09:12 BP 107 / 74; Pulse 79; Resp 14; Pulse Ox 100% on BiPAP; iw 09:30 BP 116 / 56; Pulse 76; Resp 13; Pulse Ox 100% on BiPAP; ww 10:00 BP 117 / 61; Pulse 68; Resp 20; Pulse Ox 100% on BiPAP; ww 10:30 BP 102 / 71; Pulse 104; Resp 21; Pulse Ox 95% on BiPAP; ww 11:01 BP 100 / 46; Pulse 84; Resp 20; Pulse Ox 100% on BiPAP; ww 12:17 BP 107 / 90; Pulse 82; Resp 20; Pulse Ox 100% on BiPAP; ld1 13:00 BP 139 / 106; Pulse 109; Resp 20; Pulse Ox 97% on BiPAP; ld1 14:00 BP 107 / 64; Pulse 79; Resp 20; Pulse Ox 96% on BiPAP; ld1 15:00 BP 116 / 64; Pulse 80; Resp 20; Pulse Ox 99% on BiPAP; ld1 16:00 BP 120 / 90; Pulse 95; Resp 18; Pulse Ox 97% on 4 lpm NC; ld1 19:00 BP 133 / 60; Pulse 95; Resp 19; Pulse Ox 98% on 4 lpm NC; ll3 20:00 BP 112 / 60; Pulse 76; Resp 18; Pulse Ox 99% on 4 lpm NC; ll3 21:00 BP 110 / 62; Pulse 78; Resp 17; Pulse Ox 99% on BiPAP; ll3 22:00 BP 103 / 64; Pulse 87; Resp 16; Pulse Ox 100% on BiPAP; ll3 08:30 Body Mass Index 20.98 (58.97 kg, 167.64 cm) ED Course: 08:26 Patient arrived in ED. rn 08:26 Evelio Lucero MD is Attending Physician. rn 08:30 Inserted saline lock: 20 gauge in left antecubital area, using aseptic technique. iw 08:33 EKG done, by ED staff, reviewed by Evelio Lucero MD. em1 08:46 XRAY CXR (1 view) In Process Unspecified. EDMS 09:00 Inserted saline lock: 18 gauge in right antecubital area, using aseptic technique. iw 09:03 Hayley Beckman, RN is Primary Nurse. iw 09:04 BIPAP Sent. iw 09:07 Triage completed. iw 09:07 Arm band placed on. iw 09:10 Patient has correct armband on for positive identification. Bed in low position. Call iw light in reach. Side rails up X2. Client placed on continuous cardiac and pulse oximetry monitoring. NIBP monitoring applied. 09:11 Oxygen administration administration via face mask 16/8 bipap with respirations of 20. iw 09:41 Truong Das MD is Hospitalizing Provider. rn 12:17 No provider procedures requiring assistance completed. ld1 19:25 Primary Nurse role handed off by Hayley Beckman, RN mw2 22:38 Patient admitted, IV remains in place. ll3 Administered Medications: 08:50 Drug: SOLU-Medrol (methylPrednisoLONE) 125 mg Route: IVP; Site: left antecubital; iw 08/03 09:10 Follow up: Response: No adverse reaction iw 08/02 08:53 Drug: Magnesium Sulfate 1 grams Route: IVPB; Infused Over: 1 hrs; Site: left iw antecubital; 11:37 Follow up: Response: No adverse reaction; IV Status: Completed infusion ww 08:53 Drug: NS 0.9% 1000 ml Route: IV; Rate: 1000 ml; Site: left antecubital; iw 11:36 Follow up: IV Status: Completed infusion ww 09:04 Drug: Xopenex (levalbuterol) (3) 1.25 mg Route: Inhalation; iw 11:37 Follow up: Response: No adverse reaction ww Medication: 12:17 VIS not applicable for this client. ld1 Outcome: 09:42 Decision to Hospitalize by Provider. rn 22:38 Admitted to Tele accompanied by nurse, via stretcher, room 403, with oxygen, with ll3 chart, Report called to MARY KATE Parker 22:38 Condition: stable 22:38 Instructed on the need for admit, Demonstrated understanding of instructions. 22:58 Patient left the ED. mw2 Signatures: Dispatcher [employer] EDHayley Daley, RN RN iw Evelio Lucero MD MD rn Martinez, Eric em1 Montrell Shaw mw2 Joana Silva RN RN ld1 Madyson Conley RN RN ll3 Yandy Meza RN RN ww Corrections: (The following items were deleted from the chart) : 09:05 Chief complaint: EMS states: EMS called for shortness of breath. When they iw arrived he has in the tripod position with O2 sat of 74% and place on oxygen for ems transport. iw 09: 09:05 BP 93 / 61; Pulse 98bpm; Resp 14bpm; Pulse Ox 95% 3 lpm Nasal Cannula; Temp 98.3F iw Oral; 58.97 kg; Height 5 ft. 6 in.; BMI: 20.9; Pain 0/10; iw
--- NOTE | 2021-08-02 09:43 | EDPHYS ---
Physician Documentation [facility] Name: Cipriano Nesbitt Age: 61 yrs Sex: Male : 1960 Arrival Date: 08/02/2021 Time: 08:26 Bed 18 Private MD: ED Physician Evelio Lucero HPI: 08/02 09:05 This 61 yrs old Male presents to ER via Unassigned with complaints of sob. rn 09:05 The patient has shortness of breath at rest. Onset: The symptoms/episode began/occurred rn today. Duration: The symptoms are continuous. The patient's shortness of breath is aggravated by exertion, light activity, talking, is alleviated by application of supplemental oxygen. Associated signs and symptoms: Pertinent positives: non-productive cough, Pertinent negatives: chest pain, fever, hemoptysis. Severity of symptoms: At their worst the symptoms were moderate in the emergency department the symptoms have improved. The patient has experienced similar episodes in the past. The patient has not recently seen a physician. EMS reports sob and confusion, patient reports began today, similar to previous episodes, better with supplemental oxygen. No fever. No trauma. . Historical: - Allergies: 09:07 No Known Allergies; iw - Home Meds: 09:07 Prednisone Oral [Active]; Naproxen Oral [Active]; iw - PMHx: 09:07 Asthma; Hypertension; Chronic obstructive lung disease; iw - Immunization history:: Adult Immunizations unknown. - Social history:: Smoking status: Patient reports the use of cigarette tobacco products, smokes one pack cigarettes per day. - Family history:: not pertinent. - Hospitalizations: : No recent hospitalization is reported. ROS: 09:05 Constitutional: Negative for fever, chills, and weight loss, Eyes: Negative for injury, rn pain, redness, and discharge, ENT: Negative for injury, pain, and discharge, Neck: Negative for injury, pain, and swelling, Cardiovascular: Negative for chest pain, palpitations, and edema, Respiratory: + cough and sob Abdomen/GI: Negative for abdominal pain, nausea, vomiting, diarrhea, and constipation, Back: Negative for injury and pain, : Negative for injury, bleeding, discharge, and swelling, MS/Extremity: Negative for injury and deformity, Skin: Negative for injury, rash, and discoloration, Neuro: + generalized weakness Exam: 09:05 Constitutional: Thin male, slow to respond, awakens to voice and tactile stimulation rn Head/Face: Normocephalic, atraumatic. Eyes: Periorbital areas with no swelling, redness, or edema. ENT: dry MM, no stridor Cardiovascular: Regular rate and rhythm. No pulse deficits. Respiratory: + shallow respirations, + tachypnea, + poor inspiratory air movement, faint wheezing noted bilaterally. + retractions. Abdomen/GI: soft, non-tender Skin: Warm, dry, no cyanosis MS/ Extremity: Pulses equal, no cyanosis. Neurovascular intact. Full, normal range of motion. Equal circumference. Neuro: Somnolent, GCS 15, oriented to person, not place or time. Vital Signs: 08:30 BP 93 / 61; Pulse 98; Resp 14; Temp 98.3(O); Pulse Ox 95% on 3 lpm NC; Weight 58.97 kg; iw Height 5 ft. 6 in. (167.64 cm); Pain 0/10; 09:12 BP 107 / 74; Pulse 79; Resp 14; Pulse Ox 100% on BiPAP; iw 09:30 BP 116 / 56; Pulse 76; Resp 13; Pulse Ox 100% on BiPAP; ww 10:00 BP 117 / 61; Pulse 68; Resp 20; Pulse Ox 100% on BiPAP; ww 10:30 BP 102 / 71; Pulse 104; Resp 21; Pulse Ox 95% on BiPAP; ww 11:01 BP 100 / 46; Pulse 84; Resp 20; Pulse Ox 100% on BiPAP; ww 12:17 BP 107 / 90; Pulse 82; Resp 20; Pulse Ox 100% on BiPAP; ld1 13:00 BP 139 / 106; Pulse 109; Resp 20; Pulse Ox 97% on BiPAP; ld1 14:00 BP 107 / 64; Pulse 79; Resp 20; Pulse Ox 96% on BiPAP; ld1 15:00 BP 116 / 64; Pulse 80; Resp 20; Pulse Ox 99% on BiPAP; ld1 16:00 BP 120 / 90; Pulse 95; Resp 18; Pulse Ox 97% on 4 lpm NC; ld1 19:00 BP 133 / 60; Pulse 95; Resp 19; Pulse Ox 98% on 4 lpm NC; ll3 20:00 BP 112 / 60; Pulse 76; Resp 18; Pulse Ox 99% on 4 lpm NC; ll3 21:00 BP 110 / 62; Pulse 78; Resp 17; Pulse Ox 99% on BiPAP; ll3 22:00 BP 103 / 64; Pulse 87; Resp 16; Pulse Ox 100% on BiPAP; ll3 08:30 Body Mass Index 20.98 (58.97 kg, 167.64 cm) iw MDM: 08:26 Patient medically screened. rn 09:41 Differential diagnosis: Chronic Obstructive Pulmonary Disease Myocardial Infarction rn pneumonia, Pneumothorax pulmonary edema, reactive airway disease. Data reviewed: vital signs, nurses notes, lab test result(s), EKG, radiologic studies, plain films, and as a result, I will admit patient. Counseling: I had a detailed discussion with the patient and/or guardian regarding: the historical points, exam findings, and any diagnostic results supporting the discharge/admit diagnosis, lab results, radiology results, the need for further work-up and treatment in the hospital. Response to treatment: the patient's symptoms have mildly improved after treatment, and as a result, I will admit patient. Admission orders: after a detailed discussion of the patient's condition and case, the admit orders are written by me. 08/02 08:27 Order name: BMP; Complete Time: 09:40 rn 08/02 08:27 Order name: Blood Culture Adult (2) rn 08/02 08:27 Order name: CBC with Diff; Complete Time: 09:40 rn 08/02 08:27 Order name: Ckmb; Complete Time: 09:40 rn 08/02 08:27 Order name: Hepatic Function; Complete Time: 09:40 rn 08/02 08:27 Order name: NT PRO-BNP; Complete Time: 09:40 rn 08/02 08:27 Order name: PT-INR; Complete Time: 09:40 rn 08/02 08:27 Order name: Ptt, Activated; Complete Time: 09:40 rn 08/02 08:27 Order name: XRAY CXR (1 view); Complete Time: 09:40 rn 08/02 08:27 Order name: ABG; Complete Time: 09:40 rn 08/02 08:27 Order name: BIPAP rn 08/02 10:40 Order name: Urinalysis EDIL 08/02 10:42 Order name: SARS-COV-2 RT PCR EDIL 08/02 08:27 Order name: EKG; Complete Time: 08:28 rn 08/02 08:27 Order name: Cardiac monitoring; Complete Time: 09:03 rn 08/02 08:27 Order name: EKG - Nurse/Tech; Complete Time: 08:33 rn 08/02 08:27 Order name: IV Saline Lock; Complete Time: 09:03 rn 08/02 08:27 Order name: Labs collected and sent; Complete Time: 09:03 rn 08/02 08:27 Order name: O2 Per Protocol; Complete Time: 09:04 rn 08/02 08:27 Order name: O2 Sat Monitoring; Complete Time: 09:04 rn 08/02 10:40 Order name: Regular EDMS Administered Medications: 08:50 Drug: SOLU-Medrol (methylPrednisoLONE) 125 mg Route: IVP; Site: left antecubital; iw 08/03 09:10 Follow up: Response: No adverse reaction iw 08/02 08:53 Drug: Magnesium Sulfate 1 grams Route: IVPB; Infused Over: 1 hrs; Site: left iw antecubital; 11:37 Follow up: Response: No adverse reaction; IV Status: Completed infusion ww 08:53 Drug: NS 0.9% 1000 ml Route: IV; Rate: 1000 ml; Site: left antecubital; iw 11:36 Follow up: IV Status: Completed infusion ww 09:04 Drug: Xopenex (levalbuterol) (3) 1.25 mg Route: Inhalation; iw 11:37 Follow up: Response: No adverse reaction ww Disposition: 09:41 Critical Care:. rn Disposition Summary: 08/02/21 09:42 Hospitalization Ordered Hospitalization Status: Inpatient Admission rn Provider: Truong Das rn [facility] ([facility]patient) rn Condition: Stable rn Problem: an acute exacerbation rn Symptoms: have improved rn Bed/Room Type: Standard rn Room Assignment: 403(08/02/21 20:43) bb Diagnosis - COPD/ Chronic obstructive pulmonary disease with (acute) exacerbation rn - Acute respiratory failure with hypercapnia rn - Altered mental status, unspecified rn - Hypoxemia rn Forms: - Medication Reconciliation Form rn - SBAR form double corner cutter time excluding procedures: 09:41 Critical care time: Bedside Care: 35 minutes. Total time: 35 minutes rn Signatures: Dispatcher [employer] EDMS Farias, MARY KATE Beltran RN, Irene, RN RN iw Nieto, Roman, MD MD rn Wood, Whitney RN ww Corrections: (The following items were deleted from the chart) 10:42 10:06 COVID 19 CPL+BRZ ordered. EDMS EDMS 20:43 09:42 mary kate palacios
[2021-08-02] MEDS ORDERED: ALBUTEROL 2.5 MG/3 ML NEB SOL NEB PRN ×2 (10:31→14:00)
--- NOTE | 2021-08-02 10:40 | P.HP ---
Certification for Inpatient Patient admitted to: Observation With expected LOS: <2 Midnights Patient will require the following post-hospital care: None Practitioner: I am a practitioner with admitting privileges, knowledge of patient current condition, hospital course, and medical plan of care. Services: Services provided to patient in accordance with Admission requirements found in Title 42 Section 412.3 of the Code of Federal Regulations Patient History Date of Service: 08/02/21 Reason for admission: COPD exacerbation, hypercapnic respiratory failure History of Present Illness: 62-year-old male patient with medical history significant for COPD, hypertension was evaluated for episode of inability to breathe well and altered mentation. He was said to have issues at home and emergency medical personnel was called and on arrival his oxygen saturation was in the 70s. He was transferred to the hospital for evaluation. In the hospital he had urgent chest x-ray done that revealed no acute process however there were changes compatible with emphysema. ABG done revealed a pH of 7.27 with PCO2 of 79 and he was deemed to be in acute hypercapnic respiratory failure. He was started on oxygen by nasal cannula with slight improvement in oxygenation however after ABG results was populated he was put on BiPAP for hypercapnic respiratory failure. There was no overt evidence of pneumonia changes on chest x-ray. He denied any episodes of cough productive of sputum, fever, chills, rigor, nausea, vomiting. He denies night sweats. He was admitted on observation because of his respiratory failure related issue. Allergies No Known Allergies Allergy (Verified 12/19/16 06:07) Home Medications: Albuterol Sulfate [Proair Hfa] 2 puff IH TID PRN #1 hfa.aer.ad 11/27/20 Fluticasone Propion/Salmeterol [Airduo Digihaler 113-14 Mcg] 1 each IH BID #1 aer.pw.bas 11/27/20 predniSONE [Prednisone*] 20 mg PO SEECOM #21 tab 11/27/20 - Past Medical/Surgical History Diabetic: No -: Hypertension -: COPD Past Surgical History: Patient denies surgical history -: None Psychosocial/ Personal History: Lives at home, alone - Family History Father -: Heart disease Mother -: Lung disease - Social History Alcohol use: No CD- Drugs: No Caffeine use: No Review of Systems General: Weakness, Malaise Eyes: Unremarkable ENT: Unremarkable Respiratory: Shortness of Breath Cardiovascular: Unremarkable Gastrointestinal: Unremarkable Genitourinary: Unremarkable Musculoskeletal: Unremarkable Integumentary: Unremarkable Physical Examination - Physical Exam General: Alert HEENT: Atraumatic, Normocephalic Neck: Supple Respiratory: Diminished Cardiovascular: Regular rate/rhythm, Normal S1 S2 Gastrointestinal: Soft and benign Musculoskeletal: No swelling Neurological: Normal speech, Sensation intact - Studies Laboratory Data (last 24 hrs) 08/02/21 08:38: PT 12.5, INR 1.13, APTT 36.9 08/02/21 08:38: WBC 12.2 H, Hgb 18.2 H, Hct 55.4 H, Plt Count 296 08/02/21 08:38: Sodium 139, Potassium 4.3, BUN 18, Creatinine 1.09, Glucose 147 H, Total Bilirubin 0.8, AST 19, ALT 36, Alkaline Phosphatase 96 Assessment and Plan - Plan COPD with exacerbation. He does have symptom compatible with COPD exacerbation. He has been started on steroid therapy and oxygenation with BiPAP. Will consider antibiotic therapy if symptoms of tachycardia, fever and sputum production ensues. For now he will be deemed as a noninfectious COPD exacerbation patient. We have consulted pulmonary physician for adjustment of medication for COPD management. Hypercapnic respiratory failure: Present on admission. Deemed secondary to COPD exacerbation. He has been started on BiPAP therapy. We will monitor ABG as PCO2 was elevated at 79 Will continue inhalational therapy for COPD management. History of hypertension: We will monitor vital signs per unit protocol and continue antihypertensive medications. Prophylaxis: Lovenox for DVT prophylaxis. CODE STATUS: Full code. Disposition: For possible discharge in 24 to 48 hours. - Advance Directives Does patient have a Living Will: No Does patient have a Durable POA for Healthcare: No
[2021-08-02] MEDS: IPRATROPIUM BROM 0.5MG/2.5ML NEB SCH ×2 (13:12→19:41)
[2021-08-02] MEDS ORDERED: IPRATROPIUM BROM 0.5MG/2.5ML ONE ×2 (13:17→19:38)
[2021-08-02] MEDS: LORAZEPAM 0.5 MG TABLET PO ONE ×2 (15:45→15:46)
[2021-08-02] MEDS ORDERED: LORAZEPAM 0.5 MG TABLET ONE (15:53)
[2021-08-02] MEDS: METHYLPREDNISOLONE 40 MG INJ IV SCH (17:00)
[2021-08-02] MEDS ORDERED: NA CHLORIDE 0.9% 500 ML IV ONE (23:12)
[2021-08-02] MEDS ORDERED: NA CHLORIDE 0.9% 500 ML ONE (23:20)
[2021-08-03] MEDS ORDERED: NA CHLORIDE 0.9% 500 ML IV ONE (00:01)
[2021-08-03] MEDS: IPRATROPIUM BROM 0.5MG/2.5ML NEB SCH ×4 (01:00→19:50)
[2021-08-03 01:42] VITALS: BMI 20.6
[2021-08-03] MEDS: ENOXAPARIN 40 MG/0.4 ML SQ SCH (08:11)
[2021-08-03] MEDS: METHYLPREDNISOLONE 40 MG INJ IV SCH ×3 (08:11→17:00)
--- NOTE | 2021-08-03 08:41 | P.CNS ---
Date of Consult: 08/03/21 Reason for Consult: Respiratory failure Chief Complaint: COPD exacerbation, hypercapnic respiratory failure History of Present Illness: Patient is 62 years of age with a history of COPD lives by himself and used to smoke admitted with altered mental status daughter at the bedside patient does not speak any Ukrainian she was found to be hypoxic currently on BiPAP also hypercapnic not use any bronchodilators or oxygen is still confused although alert positive and minimally cooperative Allergies No Known Allergies Allergy (Verified 12/19/16 06:07) Home Medications: NK [No Home Meds] 08/03/21 - Past Medical/Surgical History Diabetic: No -: Hypertension -: COPD -: Smoker -: None Psychosocial/ Personal History: Lives at home, alone - Family History Father Medical History: Heart disease Mother Medical History: Lung disease - Social History Smoking Status: Current every day smoker Alcohol use: Yes CD- Drugs: No Caffeine use: Yes Place of Residence: Home Review of Systems is unable to be obtained Physical Examination Temp Pulse Resp BP Pulse Ox 97.4 F 86 18 109/49 L 94 08/03/21 03:42 08/03/21 03:42 08/03/21 03:42 08/03/21 03:42 08/03/21 03:42 General: Alert, Cooperative Respiratory: Clear to auscultation bilaterally, Diminished Cardiovascular: No edema, Regular rate/rhythm, Normal S1 S2 Gastrointestinal: Hypoactive Musculoskeletal: No clubbing, No swelling Laboratory Data (last 24 hrs) 08/02/21 08:38: PT 12.5, INR 1.13, APTT 36.9 08/02/21 08:38: WBC 12.2 H, Hgb 18.2 H, Hct 55.4 H, Plt Count 296 08/02/21 08:38: Sodium 139, Potassium 4.3, BUN 18, Creatinine 1.09, Glucose 147 H, Total Bilirubin 0.8, AST 19, ALT 36, Alkaline Phosphatase 96 - Problems (1) Acute on chronic respiratory failure with hypoxia and hypercapnia Current Visit: Yes Status: Acute Plan: Patient is 61 years of age heavy smoker admitted with hypoxic hypercapnic respiratory failure presumed secondary to COPD patient's bicarbonate is elevated presumed acute on chronic not drink chest x-ray shows COPD changes patient needs to be on bronchodilators titrate O2 down to 90% does not use any medications or bronchodilators at home labs reviewed
--- NOTE | 2021-08-03 09:53 | EKG ---
Test Date: 2021-08-02 Test Time: 08:27:19 Video Control Operator: MEHUL MEASUREMENT RESULTS: Intervals: Rate: 95 HI: 108 QRSD: 76 QT: 354 QTc: 444 [place]: P: 87 HI: 108 QRS: 108 T: 65 INTERPRETIVE STATEMENTS: Sinus rhythm with short HI Right atrial enlargement Rightward axis Pulmonary disease pattern Nonspecific ST abnormality Abnormal ECG Compared to ECG 11/25/2020 22:22:25 Short HI interval now present Right-axis deviation now present ST (T wave) deviation now present Sinus tachycardia no longer present Electronically Signed On 08-03-21 09:49:57 CDT by Dc Hall
[2021-08-03 10:08] LABS: Arterial Blood Carboxyhemoglob 2.6 % (0-1.5); Blood Gas Oxyhemoglobin 91.1 % (94-97); Blood O2 Saturation 94.7 % (92-98.5)
[2021-08-03] MEDS: ALBUTEROL 2.5 MG/3 ML NEB SOL NEB SCH ×2 (15:22→19:50)
[2021-08-03 15:43] LABS: Urine Appearance Clear (Clear); Urine Blood Negative (Negative); Urine Color Yellow (Yellow); Urine Glucose Negative (Negative); Urine Protein Trace (Negative); Urine Specific Gravity >=1.030 (1.005-1.030); Urine pH 5.5 (5.0-7.0)
[2021-08-03] MEDS: BUDESONIDE 0.5 MG/2 ML NEB NEB SCH ×2 (16:00→19:50)
[2021-08-03 16:28] LABS: Urine Microscopic Reflex ORDER UMIC
--- NOTE | 2021-08-03 16:29 | P.PN ---
Subjective Date of Service: 08/03/21 Chief Complaint: COPD exacerbation, hypercapnic respiratory failure Subjective: No new changes Physical Examination - Vital Signs Temperature: 98.8 F Blood Pressure: 105/66 Pulse: 92 Respirations: 20 Pulse Ox (%): 94 - Physical Exam General: Alert HEENT: Atraumatic, Normocephalic Neck: Supple Respiratory: Diminished Cardiovascular: Regular rate/rhythm, Normal S1 S2 Gastrointestinal: Soft and benign Musculoskeletal: No swelling Neurological: Normal speech Assessment And Plan - Plan COPD with exacerbation. Patient still has significant symptom. Budesonide inhalation added to therapy.. Pulmonary physician recommendation noted. We will monitor symptomatology. Hypercapnic respiratory failure: pH is better at 7.35. PCO2 still elevated at 61. We think this is his baseline. Will continue inhalational therapy for COPD management. Pulmonary physician following History of hypertension: We will monitor vital signs per unit protocol and continue antihypertensive medications. Prophylaxis: Lovenox for DVT prophylaxis. CODE STATUS: Full code.
[2021-08-03 16:42] LABS: Urine Bacteria <20 /HPF (NONE SEEN); Urine Bilirubin NEGATIVE (Negative); Urine RBC <5 /HPF (NONE SEEN)
[2021-08-03] MEDS: BENZONATATE 100 MG CAP PO PRN (22:16)
[2021-08-04] MEDS: METHYLPREDNISOLONE 40 MG INJ IV SCH (00:32)
[2021-08-04] MEDS: IPRATROPIUM BROM 0.5MG/2.5ML NEB SCH ×4 (01:50→19:50)
[2021-08-04] MEDS: ALBUTEROL 2.5 MG/3 ML NEB SOL NEB SCH ×4 (01:50→19:50)
--- NOTE | 2021-08-04 08:49 | P.PN ---
Subjective Date of Service: 08/04/21 Chief Complaint: COPD exacerbation, hypercapnic respiratory failure Subjective: Improving (Improving patient is doing much better saturation satisfactory no new complaint) Review of Systems is unable to be obtained Physical Examination - Vital Signs Temperature: 98.3 F Blood Pressure: 107/55 Pulse: 70 Respirations: 16 Pulse Ox (%): 98 - Physical Exam General: Alert, Cooperative Respiratory: Clear to auscultation bilaterally, Diminished Cardiovascular: No edema, Normal S1 S2 Assessment And Plan - Current Problems (Diagnosis) (1) Acute on chronic respiratory failure with hypoxia and hypercapnia Current Visit: Yes Status: Acute Plan: Patient is doing much better titrate sat to 90% qualify for home O2 plan for discharge on prednisone milligrams twice a day for 2 weeks also needs some bronchodilators nebulized albuterol ipratropium in addition to her long-acting bronchodilator Advair or Symbicort or Dulera vital signs satisfactory follow-up with me in 2 weeks
[2021-08-04] MEDS: BUDESONIDE 0.5 MG/2 ML NEB NEB SCH (08:51)
[2021-08-04] MEDS: ENOXAPARIN 40 MG/0.4 ML SQ SCH (09:12)
[2021-08-04] MEDS: predniSONE 20 MG TAB PO SCH ×2 (09:12→20:36)
[2021-08-04] MEDS: DULERA 100/5 (MOMETASONE/FORMOTEROL) INHALER IH SCH ×2 (13:15→20:36)
--- NOTE | 2021-08-04 16:14 | P.PN ---
Subjective Date of Service: 08/04/21 Chief Complaint: COPD exacerbation, hypercapnic respiratory failure Subjective: No new changes (still has poor air exchange.) Physical Examination - Vital Signs Temperature: 98.2 F Blood Pressure: 110/52 Pulse: 88 Respirations: 22 Pulse Ox (%): 96 - Physical Exam General: Alert, Oriented x3 HEENT: Atraumatic, Normocephalic Neck: Supple Respiratory: Diminished Cardiovascular: Regular rate/rhythm, Normal S1 S2 Gastrointestinal: Soft and benign Musculoskeletal: No swelling Neurological: Normal speech, Normal strength at 5/5 x4 extr Assessment And Plan - Plan COPD with exacerbation. Patient still has significant symptom. advair inhalation therapy started.. Pulmonary physician recommendation noted. We will monitor symptomatology. Hypercapnic respiratory failure: pH is better at 7.35. PCO2 still elevated at 61 on last check. We think this is his baseline. Will continue inhalational therapy for COPD management. Pulmonary physician following History of hypertension: We will monitor vital signs per unit protocol and continue antihypertensive medications. Prophylaxis: Lovenox for DVT prophylaxis. CODE STATUS: Full code.
[2021-08-05] MEDS: IPRATROPIUM BROM 0.5MG/2.5ML NEB SCH ×4 (01:20→19:45)
[2021-08-05] MEDS: ALBUTEROL 2.5 MG/3 ML NEB SOL NEB SCH ×4 (01:20→19:45)
[2021-08-05] MEDS: ACETAMINOPHEN 500 MG TAB PO PRN ×2 (06:28→10:18)
[2021-08-05] MEDS: ENOXAPARIN 40 MG/0.4 ML SQ SCH (08:33)
[2021-08-05] MEDS: DULERA 100/5 (MOMETASONE/FORMOTEROL) INHALER IH SCH ×2 (08:33→21:00)
[2021-08-05] MEDS: predniSONE 20 MG TAB PO SCH ×2 (08:33→21:00)
[2021-08-05] MEDS ORDERED: ONDANSETRON 4 MG/2 ML VIAL IV ONE (10:35)
--- NOTE | 2021-08-05 10:51 | P.DS ---
Admission Date: 08/03/21 Discharge Date: 08/05/21 Disposition: ROUTINE DISCHARGE Discharge Condition: GOOD Reason for Admission: COPD exacerbation, hypercapnic respiratory failure Brief History of Present Illness: 62-year-old male patient with medical history significant for COPD, hypertension was evaluated for episode of inability to breathe well and altered mentation. He was said to have issues at home and emergency medical personnel was called and on arrival his oxygen saturation was in the 70s. He was transferred to the hospital for evaluation. In the hospital he had urgent chest x-ray done that revealed no acute process however there were changes compatible with emphysema. ABG done revealed a pH of 7.27 with PCO2 of 79 and he was deemed to be in acute hypercapnic respiratory failure. He was started on oxygen by nasal cannula with slight improvement in oxygenation however after ABG results was populated he was put on BiPAP for hypercapnic respiratory failure. There was no overt evidence of pneumonia changes on chest x-ray. He denied any episodes of cough productive of sputum, fever, chills, rigor, nausea, vomiting. He denies night sweats. He was admitted on observation because of his respiratory failure related issue. Hospital Course: He was admitted for management of COPD exacerbation and was started on steroid and inhalational therapy with DuoNeb. He had a hypercapnic respiratory failure that responded to BiPAP therapy. pH was 7.30 on admission and is improved to 7.35 from last check. His PCO2 was 79 and this improved to 61 after BiPAP therapy. Was deemed stable for discharge today to continue with prescribed Symbicort and oral steroid. He will follow-up with nephrology pulmonary physician on outpatient for adjustment of medication and further management plans. Vital Signs/Physical Exam: Temp Pulse Resp BP Pulse Ox 98.5 F 75 16 102/52 L 100 08/05/21 08:00 08/05/21 08:00 08/05/21 08:00 08/05/21 08:00 08/05/21 08:00 General: Alert, Oriented x3 HEENT: Atraumatic, Normocephalic Neck: Supple Respiratory: Normal air movement Cardiovascular: Regular rate/rhythm, Normal S1 S2 Gastrointestinal: Soft and benign Musculoskeletal: No swelling Neurological: Normal speech, Normal strength at 5/5 x4 extr Laboratory Data at Discharge: WBC 12.2 K/uL (4.3-10.9) H 08/02/21 08:38 Hgb 18.2 g/dL (13.6-17.9) H 08/02/21 08:38 Hct 55.4 % (39.6-49.0) H 08/02/21 08:38 Plt Count 296 K/uL (152-406) 08/02/21 08:38 PT 12.5 SECONDS (9.5-12.5) 08/02/21 08:38 INR 1.13 08/02/21 08:38 APTT 36.9 SECONDS (24.3-36.9) 08/02/21 08:38 Sodium 139 mmol/L (136-145) 08/02/21 08:38 Potassium 4.3 mmol/L (3.5-5.1) 08/02/21 08:38 BUN 18 mg/dL (7-18) 08/02/21 08:38 Creatinine 1.09 mg/dL (0.55-1.3) 08/02/21 08:38 Glucose 147 mg/dL (74-106) H 08/02/21 08:38 Total Bilirubin 0.8 mg/dL (0.2-1.0) 08/02/21 08:38 AST 19 U/L (15-37) 08/02/21 08:38 ALT 36 U/L (12-78) 08/02/21 08:38 Alkaline Phosphatase 96 U/L (45-117) 08/02/21 08:38 Home Medications: NK [No Home Meds] 08/03/21 Diet: Regular Activity: Ad juan Followup: NONE,NONE [Primary Care Provider] - J Luis Albarran MD [ACTIVE - CAN ADMIT] -
[2021-08-05] MEDS: NICOTINE 14 MG/PAT TD SCH (12:57)
[2021-08-05] MEDS ORDERED: MORPHINE 2 MG/ML SYR IV ONE (13:00)
--- NOTE | 2021-08-05 15:05 | RAD REPORT ---
EXAM DESCRIPTION: CT - Ct Stroke Brain Wo Cont - 08/05/2021 2:52 pm CLINICAL HISTORY: Confusion/alteration of awareness / CVA COMPARISON: none TECHNIQUE: Computed axial tomography of the head was obtained. All CT scans are performed using dose optimization technique as appropriate and may include automated exposure control or mA/KV adjustment according to patient size. FINDINGS: An intracranial bleed is not seen . The ventricles are normal in caliber. No extra-axial fluid collection is noted. No significant hypodensity within the brain noted Fluid within the sinuses/ mastoids is not seen. IMPRESSION: No acute intracranial abnormality is seen. If patient's symptoms persist MRI of the bra in would be recommended. The patient's nurse Debby was notified 2:58 p.m. August 05, 2021
[2021-08-05] MEDS ORDERED: LORazepam 2 MG/ML VIAL IV ONE ×2 (15:14→22:16)
[2021-08-05 15:34] LABS: Absolute Lymphocytes (CBC) 0.5 K/uL (0.7-4.9); Hematocrit 50.6 % (39.6-49.0); Lymphocytes % 3.2 % (15.3-44.8); MCV 95.4 fL (80-100); MPV 7.5 fL (7.6-11.3); RBC Red Blood Cell Count 5.31 M/uL (4.33-5.43)
[2021-08-05 15:37] LABS: Protime INR 0.97
[2021-08-05 15:51] LABS: Potassium 5.3 mmol/L (3.5-5.1)
[2021-08-05 16:28] LABS: Blood Gas Oxyhemoglobin 89.1 % (94-97); Blood O2 Saturation 91.1 % (92-98.5)
[2021-08-05 20:29] LABS: Blood Morphology Comment NOT SEEN (NOT SEEN); Platelet Estimate ADEQ; White Blood Cell Scan OK (OK)
[2021-08-05 21:50] LABS: Arterial Blood Carboxyhemoglob 1.6 % (0-1.5); Blood Gas Oxyhemoglobin 92.8 % (94-97); Blood O2 Saturation 95.5 % (92-98.5)
[2021-08-06] MEDS: ALBUTEROL 2.5 MG/3 ML NEB SOL NEB SCH ×4 (01:56→20:45)
[2021-08-06] MEDS: IPRATROPIUM BROM 0.5MG/2.5ML NEB SCH ×4 (01:56→20:45)
[2021-08-06 06:53] LABS: Arterial Blood Carboxyhemoglob 1.7 % (0-1.5); Blood Gas Oxyhemoglobin 90.7 % (94-97); Blood O2 Saturation 93.5 % (92-98.5)
[2021-08-06] MEDS: NICOTINE 14 MG/PAT TD SCH (08:17)
[2021-08-06] MEDS: predniSONE 20 MG TAB PO SCH ×2 (08:17→20:57)
[2021-08-06] MEDS: ENOXAPARIN 40 MG/0.4 ML SQ SCH (08:18)
[2021-08-06] MEDS: DULERA 100/5 (MOMETASONE/FORMOTEROL) INHALER IH SCH ×2 (08:18→20:58)
[2021-08-06] MEDS ORDERED: NICOTINE 14 MG/PAT TD SCH (09:00)
--- NOTE | 2021-08-06 13:08 | P.PN ---
Subjective Date of Service: 08/06/21 Chief Complaint: COPD exacerbation, hypercapnic respiratory failure Patient had an episode yesterday became unresponsive gases show severe hypercapnia still short of breath Review of Systems Respiratory: Cough, Shortness of Breath Physical Examination - Vital Signs Temperature: 97.9 F Blood Pressure: 97/59 Pulse: 80 Respirations: 18 Pulse Ox (%): 96 - Physical Exam General: Alert, Cooperative Respiratory: Diminished Cardiovascular: No edema, Normal pulses Assessment And Plan - Current Problems (Diagnosis) (1) Acute on chronic respiratory failure with hypoxia and hypercapnia Current Visit: Yes Status: Acute Plan: Patient admitted with hypoxic hypercapnic failure is indigent I doubt he will qualify for home noninvasive ventilator discharge home on O2 and steroids and inhalers gnosis is very poor out if he had a stroke may be able to obtain a Bi PAP while on hospice care
[2021-08-06] MEDS: MIDODRINE HCL 5 MG TABLET PO SCH (15:36)
--- NOTE | 2021-08-06 16:02 | P.PN ---
Subjective Date of Service: 08/06/21 Chief Complaint: COPD exacerbation, hypercapnic respiratory failure Subjective: Improving (Episode of worsening respiration yesterday and had hypercapnia. Much improved after BiPAP therapy was started yesterday.) Physical Examination - Vital Signs Temperature: 97.6 F Blood Pressure: 84/55 Pulse: 78 Respirations: 18 Pulse Ox (%): 97 - Physical Exam General: Alert, Oriented x3 HEENT: Atraumatic, Normocephalic Neck: Supple Respiratory: Diminished Cardiovascular: Regular rate/rhythm, Normal S1 S2 Gastrointestinal: Soft and benign Musculoskeletal: No swelling Neurological: Normal speech Assessment And Plan - Plan COPD with exacerbation. Patient still has significant symptom. advair inhalation therapy started.. Pulmonary physician recommendation noted. We will monitor symptomatology. Steroid therapy to be continued. Hypercapnic respiratory failure: Patient has improved PCO2. Latest value is 89 today. Will follow closely. Continue BiPAP. Pulmonary physician following. Hypotension. Borderline low blood pressure noted. Midodrine prn to be started for blood management Prophylaxis: Lovenox for DVT prophylaxis. CODE STATUS: Full code.
--- NOTE | 2021-08-06 16:06 | P.PN ---
Subjective Date of Service: 08/06/21 Chief Complaint: COPD exacerbation, hypercapnic respiratory failure Subjective: New changes Physical Examination - Vital Signs Temperature: 97.6 F Blood Pressure: 84/55 Pulse: 78 Respirations: 18 Pulse Ox (%): 97 - Physical Exam General: Delirious HEENT: Atraumatic, Normocephalic Neck: Supple Respiratory: Diminished Cardiovascular: Regular rate/rhythm, Normal S1 S2 Gastrointestinal: Soft and benign Musculoskeletal: No swelling Assessment And Plan - Plan COPD with exacerbation. Patient still has significant symptom. advair inhalation therapy started.. Pulmonary physician recommendation noted. We will monitor symptomatology. Steroid therapy to be continued. Hypercapnic respiratory failure: Patient has worsening PCO2 and has become altered. Latest value is 168 on check today. Continue BiPAP therapy. Pulmonary physician following. Prophylaxis: Lovenox for DVT prophylaxis. CODE STATUS: Full code.
--- NOTE | 2021-08-06 20:13 | CON ---
Consultation called because the patient had a possible seizure. History Of Present Illness: Mr. Nesbitt is a -okdi-lem patient with chronic tobacco abuse, COPD, hypertension who came into [facility] with respiratory failure, severe hypercapnia. A fter his sister noted he can only walk a few feet without continuing and having to stop due to shortn ess of breath. He was confused at home along with that. An emergency medical services brought the p portillo to [facility] where his oxygen saturation was in the 70s. He had an arterial blood g as showed pCO2 of 79, and pH of 7.27. He was treated with oxygen and BiPAP and his chest x-ray did n ot show acute cardiopulmonary processes, just prominent COPD pattern. As he was hospitalized his art erial blood gas improved on the with pCO2 down to 61 from 79 and pH improved to 7.35 from 7.27. However, the third day of his admission, he became very confused. Apparently had shaking episode, ar ms extended leg extended and his arterial blood gas showed pCO2 elevated to 168 with pH dropped to 7. 07, PO2 was 76.4. He was put back on BiPAP and has since improved with no further seizure like activ ity. It is not at documented at a length of time that he apparently had a seizure or what looked like a seizure, but has not had any recurrence. An EEG was done, the study essentially was u nremarkable except for a mildly slow activity in the frontal regions. He had a normal posterior dayanna nant rhythm and normal sleep pattern was identified. His kidney function was essentially unremarkabl e. Creatinine 0.88. Liver function studies remarkable for slightly elevated direct bilirubin of 0.3 , otherwise all numbers are unremarkable. Calcium 8.9, sodium 137, potassium elevated to 5.3. Pleas e note, his carbon dioxide on 9th was elevated to 44. CT scan of his head showed no acute ischemic or hemorrhagic findings. The study is essentially unrem arkable. No mention of small vessel ischemic disease. Past Medical History: Hypertension, COPD. Allergies: NO KNOWN DRUG ALLERGIES. Medications: At home albuterol, ProAir 2 puffs 3 times daily as needed, AirDuo Digihaler 113-14 mcg 1 inhalation twice daily, prednisone 20 mg daily. Past Surgical History: None. Social History: The patient smokes pack of cigarettes a day since age 14. Family History: Heart disease in father, lung disease in mother. Denies alcohol use. Review of Systems: He has had shortness of breath, diffuse weakness, failure to thrive while he is very dependent on tob acco, cigarettes. He has diffuse weakness. No active genitourinary or gastrointestinal issues. No dermatological issues. Physical Examination: Mr. Nesbitt appears older than stated age. Vital Signs: Blood pressure 97/59, pulse 80, respiratory rate 18, temperature 97, oxygen saturation 96% on 2 L oxygen nasal cannula. However, if he starts to speak, the oxygen saturation drops to low 70s. Weight 128 pounds. Height 5 feet 6 inches. BMI 20.7. General: Mr. Nesbitt is sitting in his bed. He does have mild shortness of breath with oxygen by perez al cannula. HEENT: He is otherwise normocephalic, atraumatic. Sclerae anicteric. Oropharynx is pink and moist. Neck: Supple. Chest: Clear. Heart: Regular. Extremities: Show no significant edema or cyanosis. He does have a barrel chest appearance. Neurologically: He communicates better in [place], but he is alert, oriented, and follows commands a ppropriately. No obvious cranial nerves. No focal motor or coordination sensory gait deficits. Laboratory Studies: White blood cell count 15.2 with 91.6% neutrophils. Assessment: Mr. Nesbitt is a -zzuw-ndx patient with chronic obstructive pulmonary disease, rule out CO2 retention and narcosis and possible seizure like activity related to severe hypercapnia. He requires continuous ventilation, especially when he is very sedated or sleepy. While awake he c an voluntarily increase his respiratory rate and saturations to go up towards normal. Plan: 1.The patient should use incentive spirometry to improve his respiratory capacity. 2.The need for oxygen should be supplied, but however over supplementation oxygen can result in decr eased respiratory drive and very elevated CO2. 3.He is told to stop smoking cigarettes which he smokes pack a day since age 14. 4.He may be discharged home and follow up with his primary care physician as appropriate. FRANCIE/CAMI Voice ID: [id number] Report ID: [id number]
[2021-08-06] MEDS: LORazepam 2 MG/ML VIAL IV PRN (20:57)
[2021-08-07] MEDS ORDERED: LORazepam 2 MG/ML VIAL IV ONE (00:18)
[2021-08-07] MEDS: IPRATROPIUM BROM 0.5MG/2.5ML NEB SCH ×4 (01:40→19:55)
[2021-08-07] MEDS: ALBUTEROL 2.5 MG/3 ML NEB SOL NEB SCH ×4 (01:40→19:55)
[2021-08-07] MEDS ORDERED: HALOPERIDOL LACT 5 MG/ML INJ IV ONE ×2 (02:19→12:52)
[2021-08-07] MEDS: MIDODRINE HCL 5 MG TABLET PO SCH (09:00)
[2021-08-07] MEDS: NICOTINE 14 MG/PAT TD SCH (09:20)
[2021-08-07] MEDS: LORazepam 2 MG/ML VIAL IV PRN ×2 (09:20→17:03)
[2021-08-07] MEDS: DULERA 100/5 (MOMETASONE/FORMOTEROL) INHALER IH SCH ×2 (09:21→20:46)
[2021-08-07] MEDS: ENOXAPARIN 40 MG/0.4 ML SQ SCH (09:21)
[2021-08-07] MEDS: predniSONE 20 MG TAB PO SCH ×2 (09:21→20:45)
[2021-08-07] MEDS: ACETAMINOPHEN 500 MG TAB PO PRN (11:35)
[2021-08-07] MEDS ORDERED: HALOPERIDOL LACT 5 MG/ML INJ IV PRN (12:43)
--- NOTE | 2021-08-07 17:06 | P.PN ---
Subjective Date of Service: 08/07/21 Chief Complaint: COPD exacerbation, hypercapnic respiratory failure Subjective: Worsening Physical Examination - Vital Signs Temperature: 97.1 F Blood Pressure: 116/64 Pulse: 69 Respirations: 22 Pulse Ox (%): 99 - Physical Exam General: Delirious HEENT: Atraumatic, Normocephalic Neck: Supple Respiratory: Diminished Cardiovascular: Regular rate/rhythm, Normal S1 S2 Gastrointestinal: Soft and benign - Studies Microbiology Data (last 24 hrs): 08/02/21 09:01 Blood - Blood Aerobic Blood Culture - Final No growth in 5 days. 08/02/21 09:01 Blood - Blood Anaerobic Blood Culture - Final No growth in 5 days. 08/02/21 08:38 Blood - Blood Aerobic Blood Culture - Final No growth in 5 days. 08/02/21 08:38 Blood - Blood Anaerobic Blood Culture - Final No growth in 5 days. Assessment And Plan - Plan COPD with exacerbation. Patient still has significant symptoms. advair inhalation therapy to be continued. Pulmonary physician recommendation noted. We will monitor symptomatology. Steroid therapy to be continued. Hypercapnic respiratory failure: has some improvement in pCO2. Last value was 85. Continue BiPAP therapy. Pulmonary physician following. Altered sensorium: he continues to have episodes of agitation. Prn haldol will be given for management. Prophylaxis: Lovenox for DVT prophylaxis. CODE STATUS: Full code.
[2021-08-07] MEDS: ALBUTEROL INHALER 60 PUFF/8 GM IH PRN (21:59)
[2021-08-08] MEDS: IPRATROPIUM BROM 0.5MG/2.5ML NEB SCH ×4 (01:30→20:15)
[2021-08-08] MEDS: ALBUTEROL 2.5 MG/3 ML NEB SOL NEB SCH ×4 (01:30→20:15)
[2021-08-08] MEDS: ACETAMINOPHEN 500 MG TAB PO PRN (03:30)
[2021-08-08] MEDS: LORazepam 2 MG/ML VIAL IV PRN ×3 (03:36→13:54)
[2021-08-08] MEDS: ENOXAPARIN 40 MG/0.4 ML SQ SCH (08:17)
[2021-08-08] MEDS: NICOTINE 14 MG/PAT TD SCH (08:17)
[2021-08-08] MEDS: predniSONE 20 MG TAB PO SCH ×2 (08:17→22:12)
[2021-08-08] MEDS: DULERA 100/5 (MOMETASONE/FORMOTEROL) INHALER IH SCH ×2 (08:18→22:12)
[2021-08-08 10:34] LABS: Urine Appearance Clear (Clear); Urine Bilirubin Negative (Negative); Urine Blood Negative (Negative); Urine Color Yellow (Yellow); Urine Glucose Negative (Negative); Urine Microscopic Reflex NO UMIC; Urine Protein Negative (Negative)
--- NOTE | 2021-08-08 13:42 | P.PN ---
Subjective Date of Service: 08/08/21 Chief Complaint: COPD exacerbation, hypercapnic respiratory failure Subjective: No new changes, Improving Physical Examination - Vital Signs Temperature: 97.9 F Blood Pressure: 105/64 Pulse: 90 Respirations: 17 Pulse Ox (%): 100 - Physical Exam General: Alert, Other (lethargic.) HEENT: Atraumatic, Normocephalic Neck: Supple Respiratory: Normal air movement Cardiovascular: Regular rate/rhythm, Normal S1 S2 Gastrointestinal: Soft and benign Musculoskeletal: No swelling Neurological: Normal speech - Studies Microbiology Data (last 24 hrs): 08/02/21 09:01 Blood - Blood Aerobic Blood Culture - Final No growth in 5 days. 08/02/21 09:01 Blood - Blood Anaerobic Blood Culture - Final No growth in 5 days. 08/02/21 08:38 Blood - Blood Aerobic Blood Culture - Final No growth in 5 days. 08/02/21 08:38 Blood - Blood Anaerobic Blood Culture - Final No growth in 5 days. Assessment And Plan - Plan COPD with exacerbation. Patient still has significant symptoms. advair inhalation therapy to be continued. Pulmonary physician recommendation noted. We will monitor symptomatology. Steroid therapy to be continued. prn albuterol and duonebs to be continued. Hypercapnic respiratory failure: has some improvement in pCO2. Last value was 85. Continue BiPAP therapy. Pulmonary physician following. Altered sensorium: he continues to have episodes of agitation. Prn haldol and ativan will be given for management. Prophylaxis: Lovenox for DVT prophylaxis. CODE STATUS: Full code.
[2021-08-08 16:06] LABS: Potassium 4.5 mmol/L (3.5-5.1)
[2021-08-08] MEDS ORDERED: HALOPERIDOL LACT 5 MG/ML INJ IM ONE (16:53)
[2021-08-09] MEDS: IPRATROPIUM BROM 0.5MG/2.5ML NEB SCH ×4 (01:25→20:15)
[2021-08-09] MEDS: ALBUTEROL 2.5 MG/3 ML NEB SOL NEB SCH ×4 (01:25→20:15)
[2021-08-09] MEDS: LORazepam 2 MG/ML VIAL IV PRN ×4 (03:39→22:31)
[2021-08-09] MEDS: ALBUTEROL INHALER 60 PUFF/8 GM IH PRN (03:40)
[2021-08-09] MEDS: ENOXAPARIN 40 MG/0.4 ML SQ SCH (07:47)
[2021-08-09] MEDS: predniSONE 20 MG TAB PO SCH ×2 (07:47→21:30)
[2021-08-09] MEDS: NICOTINE 14 MG/PAT TD SCH (07:47)
[2021-08-09] MEDS: DULERA 100/5 (MOMETASONE/FORMOTEROL) INHALER IH SCH ×2 (07:48→21:31)
--- NOTE | 2021-08-09 08:14 | EEG ---
CHART: [id number] TEST ID#: [id number] DATE OF STUDY: 08-06-2021 THE EEG WAS RECORDED PORTABLE IN THE PATIENT'S ROOM ON A 17 CHANNEL MACHINE. ELECTRODES WERE APPLIED IN THE USUAL MANNER USING THE INTERNATIONAL 10-20 SYSTEM. THE WAKING BACKGROUND RHYTHM IN THIS RECORD CONSISTS OF FAIRLY WELL DEVELOPED AND FAIRLY WELL ORGANIZED WAVES OF 9 HZ., MAXIMAL IN THE POSTERIOR HEAD REGIONS WHICH ATTENUATE NORMALLY WITH EYE OPENING. LOW-VOLTAGE 18-22 HZ ACTIVITY IS EXPRESSED IN THE FRONTAL REGIONS. MODERATE VOLTAGE 1.5-3 HZ ACTIVITY IS EXPRESSED OCCASIONALLY IN THE FRONTAL AND CENTRAL REGIONS. THERE ARE NO FOCAL OR LATERALIZING FEATURES. NO EPILEPTIFORM ACTIVITY APPEARS. SLEEP OCCURRED NATURALLY. IN ADDITION NORMAL SLEEP PATTERNS ARE PRESENT. HYPERVENTILATION WAS NOT PERFORMED. PHOTIC STIMULATION PRODUCED FAIR DRIVING BILATERALLY. IMPRESSION: THIS IS A MILDLY ABNORMAL AWAKE AND ASLEEP ROUTINE EEG DUE TO OCCASIONAL FRONTAL SLOW ACTIVITY. THIS IS A NON-SPECIFIC FINDING INDICATING THE PRESENCE OF A MILD DIFFUSE DISTRUBANCE IN CEREBRAL FUNCTION.
[2021-08-09] MEDS: ACETAMINOPHEN 500 MG TAB PO PRN (11:13)
--- NOTE | 2021-08-09 13:40 | EKG ---
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
[2021-08-09] MEDS ORDERED: FENTANYL CITR 100 MCG/2 ML IV PRN (16:21)
[2021-08-09] MEDS: TRAMADOL HCL 50 MG TAB PO PRN (16:57)
[2021-08-10] MEDS: ALBUTEROL 2.5 MG/3 ML NEB SOL NEB SCH ×4 (01:25→20:15)
[2021-08-10] MEDS: IPRATROPIUM BROM 0.5MG/2.5ML NEB SCH ×4 (01:25→20:15)
[2021-08-10] MEDS: predniSONE 20 MG TAB PO SCH ×2 (07:52→20:49)
[2021-08-10] MEDS: DULERA 100/5 (MOMETASONE/FORMOTEROL) INHALER IH SCH ×2 (07:52→21:00)
[2021-08-10] MEDS: NICOTINE 14 MG/PAT TD SCH (07:53)
[2021-08-10] MEDS: ENOXAPARIN 40 MG/0.4 ML SQ SCH (08:05)
[2021-08-10] MEDS: TRAMADOL HCL 50 MG TAB PO PRN ×2 (15:23→20:51)
[2021-08-11] MEDS: ALBUTEROL 2.5 MG/3 ML NEB SOL NEB SCH ×4 (01:20→19:55)
[2021-08-11] MEDS: IPRATROPIUM BROM 0.5MG/2.5ML NEB SCH ×4 (01:20→19:55)
[2021-08-11] MEDS: predniSONE 20 MG TAB PO SCH ×2 (07:41→20:27)
[2021-08-11] MEDS: NICOTINE 14 MG/PAT TD SCH (07:41)
[2021-08-11] MEDS: ENOXAPARIN 40 MG/0.4 ML SQ SCH (07:41)
[2021-08-11] MEDS: DULERA 100/5 (MOMETASONE/FORMOTEROL) INHALER IH SCH ×2 (07:42→20:27)
--- NOTE | 2021-08-11 08:08 | P.PN ---
Date of Service: 08/09/21 Subjective Subjective: No new changes, Improving Physical Examination - Vital Signs reviewed - Physical Exam General: Alert, Other (lethargic.) Respiratory: Normal air movement Cardiovascular: Regular rate/rhythm, Normal S1 S2 Gastrointestinal: Soft and benign Musculoskeletal: No swelling Neurological: Normal speech Assessment And Plan - Plan COPD with exacerbation. Patient still has significant symptoms. advair inhalation therapy to be continued. Pulmonary physician recommendation noted. We will monitor symptomatology. Steroid therapy to be continued. prn albuterol and duonebs to be continued. Hypercapnic respiratory failure: has some improvement in pCO2. Last value was 85. Continue BiPAP therapy. Pulmonary physician following. Altered sensorium: he continues to have episodes of agitation. Prn haldol and ativan will be given for management. Prophylaxis: Lovenox for DVT prophylaxis. CODE STATUS: Full code.
--- NOTE | 2021-08-11 08:10 | P.PN ---
Date of Service: 08/10/21 Subjective Subjective: Continues to improve Physical Examination - Vital Signs reviewed - Physical Exam General: Alert, Other (lethargic.) Respiratory: minimal expiratory wheezing Cardiovascular: Regular rate/rhythm, Normal S1 S2 Gastrointestinal: Soft and benign Musculoskeletal: No swelling Neurological: No focal deficits Assessment And Plan - Plan COPD with exacerbation. Steroid therapy to be continued. prn albuterol and duonebs to be continued. Hypercapnic respiratory failure: Last value was 85. Continue BiPAP therapy prn. Pulmonary physician following. Altered sensorium: he continues to have episodes of agitation. Prn haldol and ativan will be given for management. Prophylaxis: Lovenox for DVT prophylaxis. CODE STATUS: Full code.
[2021-08-11 11:24] LABS: Absolute Lymphocytes (CBC) 0.5 K/uL (0.7-4.9); Lymphocytes % 5.9 % (15.3-44.8); MCV 95.3 fL (80-100); MPV 7.3 fL (7.6-11.3); RBC Red Blood Cell Count 4.83 M/uL (4.33-5.43)
[2021-08-11 11:54] LABS: Albumin 3.3 g/dL (3.4-5.0); Bilirubin Total 0.6 mg/dL (0.2-1.0); Potassium 4.5 mmol/L (3.5-5.1); Protein, Total 6.1 g/dL (6.4-8.2)
[2021-08-12] MEDS: ALBUTEROL 2.5 MG/3 ML NEB SOL NEB SCH ×4 (01:05→20:20)
[2021-08-12] MEDS: IPRATROPIUM BROM 0.5MG/2.5ML NEB SCH ×4 (01:05→20:20)
--- NOTE | 2021-08-12 06:58 | ECHO ---
HEIGHT: 5 ft 6 in WEIGHT: 128 lb 0 oz DATE OF STUDY: 08/11/[address]: Tamika Wilburn MD 2-DIMENSIONAL: YES M.MODE: YES DOPPLER: YES COLOR FLOW: YES TDS: PORTABLE: YES DEFINITY: BUBBLE STUDY: DIAGNOSIS: CONGESTIVE HEART FAILURE CARDIAC HISTORY: CATHERIZATION: SURGERY: PROSTHETIC VALVE: PACEMAKER: MEASUREMENTS (cm) DIASTOLIC (NORMALS) SYSTOLIC (NORMALS) IVSd 0.8 (0.6-1.2) LA Diam 2.4 (1.9-4.0) LVEF 63% LVIDd 2.8 (3.5-5.7) LVIDs 1.9 (2.0-3.5) %FS 33% LVPWd 0.9 (0.6-1.2) Ao Diam 2.1 (2.0-3.7) 2 DIMENSIONAL ASSESSMENT: RIGHT ATRIUM: DILATED LEFT ATRIUM: NORMAL RIGHT VENTRICLE: DILATED LEFT VENTRICLE: NORMAL TRICUSPID VALVE: NORMAL MITRAL VALVE: NORMAL PULMONIC VALVE: NORMAL AORTIC VALVE: NORMAL PERICARDIAL EFFUSION: NONE AORTIC ROOT: NORMAL LEFT VENTRICULAR WALL MOTION: NORMAL LEFT VENTRICULAR SIZE AND FUNCTION. DOPPLER/COLOR FLOW: MILD TRICUSPID REGURGITATION. MILD PULMONARY HYPERTENSION. COMMENTS: MILD PULMONARY HYPERTENSION. NORMAL LEFT VENTRICULAR SIZE AND FUNTION. RIGHT VENTRICLE, RIGHT ATRIUM DILATED WITH RIGHT SIDED CONGESTIVE HEART FAILURE. TECHNOLOGIST: FLETCHER MULTANI
--- NOTE | 2021-08-12 07:18 | P.PN ---
Date of Service: 08/12/21 Subjective Subjective: Patient is clinically doing much better and anticipate discharge over the next 24 to 48 hours. Physical Examination - Vital Signs reviewed - Physical Exam General: Alert, more awake and interacting. Respiratory: minimal expiratory wheezing Cardiovascular: Regular rate/rhythm, Normal S1 S2 Gastrointestinal: Soft and benign Musculoskeletal: No swelling Neurological: No focal deficits Assessment And Plan - Plan COPD with exacerbation. Steroid therapy to be continued. prn albuterol and duonebs to be continued. Hypercapnic respiratory failure: Last value was 85. Continue BiPAP therapy prn. Pulmonary physician following. Altered sensorium: Mentation has improved and he is back to baseline Prophylaxis: Lovenox for DVT prophylaxis. CODE STATUS: Full code.
--- NOTE | 2021-08-12 07:18 | P.PN ---
Date of Service: 08/11/21 Subjective Subjective: Patient is doing much better. Clinical symptoms have improved. I try to talk with family to discuss plan of care as [facility] denied. Patient is end-stage COPD. Gets really tachypneic whenever he ambulates. Also becomes hypoxic. Physical Examination - Vital Signs reviewed - Physical Exam General: Alert, more awake and interacting. Respiratory: minimal expiratory wheezing Cardiovascular: Regular rate/rhythm, Normal S1 S2 Gastrointestinal: Soft and benign Musculoskeletal: No swelling Neurological: No focal deficits Assessment And Plan - Plan COPD with exacerbation. Steroid therapy to be continued. prn albuterol and duonebs to be continued. Hypercapnic respiratory failure: Last value was 85. Continue BiPAP therapy prn. Pulmonary physician following. Altered sensorium: Mentation has improved and he is back to baseline Prophylaxis: Lovenox for DVT prophylaxis. CODE STATUS: Full code.
[2021-08-12] MEDS: predniSONE 20 MG TAB PO SCH ×2 (08:07→20:39)
[2021-08-12] MEDS: ENOXAPARIN 40 MG/0.4 ML SQ SCH (08:07)
[2021-08-12] MEDS: DULERA 100/5 (MOMETASONE/FORMOTEROL) INHALER IH SCH ×2 (08:07→20:37)
[2021-08-12] MEDS: NICOTINE 14 MG/PAT TD SCH (08:07)
[2021-08-12] MEDS: TRAMADOL HCL 50 MG TAB PO PRN (12:13)
[2021-08-12] MEDS: MIDODRINE HCL 5 MG TABLET PO PRN (16:53)
[2021-08-12] MEDS: BENZONATATE 100 MG CAP PO PRN (20:39)
[2021-08-12] MEDS: ENSURE ENLIVE 237 ML CAN PO SCH (20:39)
[2021-08-13] MEDS: ALBUTEROL 2.5 MG/3 ML NEB SOL NEB SCH ×5 (01:40→15:21)
[2021-08-13] MEDS: IPRATROPIUM BROM 0.5MG/2.5ML NEB SCH ×4 (01:40→14:51)
[2021-08-13] MEDS: ENSURE ENLIVE 237 ML CAN PO SCH (07:33)
[2021-08-13] MEDS: NICOTINE 14 MG/PAT TD SCH (07:34)
[2021-08-13] MEDS: ENOXAPARIN 40 MG/0.4 ML SQ SCH (07:34)
[2021-08-13] MEDS: predniSONE 20 MG TAB PO SCH (07:34)
[2021-08-13] MEDS: DULERA 100/5 (MOMETASONE/FORMOTEROL) INHALER IH SCH (07:35)
[2021-08-13] MEDS: MIDODRINE HCL 5 MG TABLET PO PRN ×2 (07:38→13:41)
[2021-08-13] MEDS ORDERED: IPRATROPIUM BROM 0.5MG/2.5ML ONE (15:09)
[2021-08-13] MEDS ORDERED: IPRATROPIUM BROM 0.5MG/2.5ML NEB SCH (16:00)
[2021-08-13 16:17] VITALS: O2SAT 95
[2021-08-13 17:24] VITALS: BP 117/61; TEMP 98.9
[2021-08-13] MEDS ORDERED: ALBUTEROL 2.5 MG/3 ML NEB SOL NEB SCH (20:00)
== END 2021-08-13 19:20 | disposition hospice, home (50) | DRG 189 ==
LOC: ER 08:23 → ERHOLD 10:32 → 4TH 20:57 → OBSVTOIN 08-03 07:59
PROVIDERS: ADMIT Internal Medicine Nephrology; ATTEND Internal Medicine Nephrology
PROC: 5A09557 Assistance with Respiratory Ventilation, Greater than 96 Consecutive Hours, Continuous Positive Airway Pressure (ICD-10-PCS; principal; 2021-08-03)
DX: J96.22 Acute and chronic respiratory failure with hypercapnia (principal); J44.1 Chronic obstructive pulmonary disease with (acute) exacerbation; J96.21 Acute and chronic respiratory failure with hypoxia; I95.9 Hypotension, unspecified; I10 Essential (primary) hypertension; F17.210 Nicotine dependence, cigarettes, uncomplicated; R41.82 Altered mental status, unspecified; Z20.822 Contact with and (suspected) exposure to COVID-19
CPT/HCPCS: 36415; 70450; 71045; 80048; 80053; 80076; 81003; 81015; 82553; 82805; 82947; 83880; 85025; 85610; 85730; 87040; 93005; 93306; 94003; 94640; 94660; 94760; 95816; 96365; 96366; 96375; 99285; G0378; J1630; J1650; J2270; J2405; J2920; J2930; J3475; J3535; J7030; J7040; J7512; U0003